=== PATIENT | female | born 1980 | race Caucasian/White ===

== ENCOUNTER 2020-07-19 14:00 | Inpatient (IN) | payer MEDICAID, OTHER, SELFPAY ==
--- NOTE | 2020-07-19 14:16 | ED_ITS ---
HPI - Psych General Chief Complaint: Psychiatric Symptoms Stated Complaint: CRISIS Time Seen by Provider: 07/19/20 14:16 Source: patient Mode of arrival: ambulatory Limitations: no limitations History of Present Illness HPI Narrative: 40 y/o female with history of bipolar depression, PTSD, hx self harm and SI in the past presenting from home with worsening depression and intrusive SI thoughts over the last 2 weeks. She states she does not feel safe at home any longer. She has been having increased stress with her partner at home and they aren't getting along. Her partner is transgender and taking testosterone and the masculine changes have triggered PTSD for her. She reports compliance with her psych meds at home. She is thinking about overdosing on them and knows that she needs to get help and that she is not safe. When covid pandemic started she was getting intensive 5 days a week therapy and support. She is still getting therapy 2x per week but feels this is not enough for her in her current state. Related Data Home Medications Medication Instructions Recorded Confirmed clonidine HCl 0.3 mg PO BEDTIME 07/19/20 07/19/20 dextroamphetamine-amphetamine 5 mg PO DAILY 07/19/20 07/19/20 [Adderall] finasteride 2.5 mg PO DAILY 07/19/20 07/19/20 lamotrigine 200 mg PO DAILY 07/19/20 07/19/20 lorazepam 1 mg PO DAILY 07/19/20 07/19/20 sertraline 25 mg PO DAILY 07/19/20 07/19/20 Allergies Allergy/AdvReac Type Severity Reaction Status Date / Time No Known Allergies Allergy Verified 07/19/20 14:59 Review of Systems Review of Systems: Constitutional: No Fever, No Chills ENT/Mouth: No sore throat, No Rhinorrhea, No Swallowing Difficulty Eyes: No Eye Pain, No Swelling, No Redness Cardiovascular: No Chest Pain, No SOB, No Orthopnea, No Edema Respiratory: + Cough (chronic), No Sputum, No Wheezing, No dyspnea Gastrointestinal: + Nausea (chronic), No Vomiting, No Diarrhea, No abdominal Pain, No Hematochezia, No Melena Genitourinary: No Dysuria, No Urinary Frequency, No Hematuria Musculoskeletal: No joint pain, No Myalgias Skin: No Skin Lesions, No rash Neuro: No Weakness, No Numbness, No Dizziness, No Headache Psych: + Anxiety/Panic, + Depression, +SI, No AH/VH Heme/Lymph: No Bruising, No Lymphadenopathy Endocrine: No Polyuria, No Polydipsia [facility] Past Medical History Attestation statement: The following information was validated with the patient. Medical History Arthritis PCOS (polycystic ovarian syndrome) Scoliosis Surgical History (Updated 07/19/20 @ 14:44 by Dione Aparicio) Hx of appendectomy Social History Social History Use of substances other than those prescribed or required for medical reasons: Yes Substance Use Type: Marijuana Advance Directives: No Advance Directives Information Provided: Yes Physical Exam Vital Signs: Vital Signs: Vital Signs Temp Pulse Resp BP Pulse Ox 07/19/20 14:50 97.4 F 106 H 22 H 133/80 95 07/19/20 14:36 97.4 F 106 H 22 H 133/80 95 Body Mass Index 31.3 Appearance: Alert. Oriented X3. Tearful Eyes: Pupils equal, round and reactive to light. ENT: Pharynx normal. Neck: Normal inspection. Neck supple. CVS: Normal heart rate and rhythm. Pulses normal. Respiratory: No respiratory distress. Breath sounds normal. Abdomen: Soft and nontender. +BS x4 Skin: Skin warm and dry. Normal skin color. Normal skin turgor. No rashes. Extremities: No lower extremity edema. Psych: tearful, normal cognition with good insight to her illness, +SI, Neuro: Oriented X 3. No motor deficit. No sensory deficit. Course Course Course Narrative: 40 yo female with history of bipolar depression, PTSD, and self harm presenting with SI with plan to overdose. Increased life stressors. Wants to get help. She does not feel safe at home. Will get routine labs and get [facility] consult. MDM - Psych Restraints Face to Face Assessment: Face to Face Assessment: Current Situation: After assessment of the patient, a review of the pertinent medical record and a discussion with nursing staff, I feel the patient requires a restrain in tervention. Reaction To: [] Medical Condition: [] Behavioral State: [] Continued Need: [] Lab Data Result diagrams: 07/19/20 15:31 Labs: Lab Results 07/19/20 07/19/20 07/19/20 Range/Units 14:35 14:35 15:31 WBC 11.9 H (4.8-10.8) X10*3/uL RBC 4.94 (4.20-5.50) X10*6/uL Hgb 15.4 (12.0-16.0) g/dl Hct 44.6 (37-47) % MCV 90.3 (80-98) fL MCH 31.2 (27.0-33.0) pg MCHC 34.5 (31.0-35.0) g/dl RDW 11.9 (11.0-16.0) % Plt Count 370 (160-400) X10*3/uL MPV 9.7 (9.4-12.3) fL Immature Gran % (Auto) 0.5 H (0.0-0.4) % Neut % (Auto) 76.9 H (45-73) % Lymph % (Auto) 15.6 L (20-40) % [place] % (Auto) 6.0 (2-11) % Eos % (Auto) 0.6 (0-4) % Baso % (Auto) 0.4 (0-2) % Lymph # (Auto) 1.9 (1.2-4.9) X10*3/uL [place] # (Auto) 0.7 (0.1-1.2) X10*3/uL Eos # (Auto) 0.1 (0.0-0.4) X10*3/uL Baso # (Auto) 0.1 (0.0-0.2) X10*3/uL Abs Immat Gran (auto) 0.06 H (0.00-0.03) X10*3/uL Absolute Neuts (auto) 9.2 H (2.0-8.3) X10*3/uL Absolute Nucleated RBC 0.000 (0.0-0.012) X10*3/uL Nucleated RBC % (auto) 0.0 (0.0-0.2) /100WBC Urine Test NEGATIVE (NEGATIVE) Salicylates (15-30) mg/dL Urine Opiates Screen Not Detected (Not Detect) Acetaminophen (<30) mcg/mL Ur Barbiturates Screen Not Detected (Not Detect) Ur Phencyclidine Scrn Not Detected (Not Detect) Ur Amphetamines Screen Not Detected (Not Detect) U Benzodiazepines Scrn Not Detected (Not Detect) Urine Cocaine Screen Not Detected (Not Detect) U Marijuana (THC) Screen POSITIVE H (Not Detect) Ethyl Alcohol mg/dL 07/19/20 07/19/20 Range/Units 15:31 15:31 WBC (4.8-10.8) X10*3/uL RBC (4.20-5.50) X10*6/uL Hgb (12.0-16.0) g/dl Hct (37-47) % MCV (80-98) fL MCH (27.0-33.0) pg MCHC (31.0-35.0) g/dl RDW (11.0-16.0) % Plt Count (160-400) X10*3/uL MPV (9.4-12.3) fL Immature Gran % (Auto) (0.0-0.4) % Neut % (Auto) (45-73) % Lymph % (Auto) (20-40) % [place] % (Auto) (2-11) % Eos % (Auto) (0-4) % Baso % (Auto) (0-2) % Lymph # (Auto) (1.2-4.9) X10*3/uL [place] # (Auto) (0.1-1.2) X10*3/uL Eos # (Auto) (0.0-0.4) X10*3/uL Baso # (Auto) (0.0-0.2) X10*3/uL Abs Immat Gran (auto) (0.00-0.03) X10*3/uL Absolute Neuts (auto) (2.0-8.3) X10*3/uL Absolute Nucleated RBC (0.0-0.012) X10*3/uL Nucleated RBC % (auto) (0.0-0.2) /100WBC Urine Test (NEGATIVE) Salicylates < 5.0 L (15-30) mg/dL Urine Opiates Screen (Not Detect) Acetaminophen < 1 (<30) mcg/mL Ur Barbiturates Screen (Not Detect) Ur Phencyclidine Scrn (Not Detect) Ur Amphetamines Screen (Not Detect) U Benzodiazepines Scrn (Not Detect) Urine Cocaine Screen (Not Detect) U Marijuana (THC) Screen (Not Detect) Ethyl Alcohol < 10 mg/dL Discharge Plan Discharge Prescriptions: No Action lamotrigine 200 mg Tablet 200 mg PO DAILY RF: 0 clonidine HCl 0.3 mg Tablet 0.3 mg PO BEDTIME RF: 0 sertraline 25 mg Tablet 25 mg PO DAILY RF: 0 lorazepam 1 mg Tablet 1 mg PO DAILY RF: 0 finasteride 5 mg Tablet 2.5 mg PO DAILY RF: 0 dextroamphetamine-amphetamine [Adderall] 5 mg Tablet 5 mg PO DAILY RF: 0
--- NOTE | 2020-07-19 14:17 | PC.NURSE ---
pt arrived to ed from waiting room. pt cooperative w/ changeover, alert.
[2020-07-19 14:36] VITALS: BP 133/80; PULSE 106; RESP 22; TEMP 36.3; O2SAT 95; BMI 31.3
[2020-07-19 14:49] LABS: UPreg QC Valid YES; Urine Pregnancy NEGATIVE (NEGATIVE)
[2020-07-19 14:50] VITALS: BP 133/80; PULSE 106; RESP 22; TEMP 36.3; O2SAT 95
[2020-07-19 15:14] LABS: Amphetamine Screen Urine Not Detected (Not Detect); Barbiturates, Urine Not Detected (Not Detect); Benzodiazepines Screen Urine Not Detected (Not Detect); Cannabinoid Screen Urine POSITIVE (Not Detect); Cocaine Screen Urine Not Detected (Not Detect); Opiate Screen Urine Not Detected (Not Detect); Phencyclidine Screen Urine Not Detected (Not Detect)
[2020-07-19 15:40] LABS: MANUAL DIFF FLAG NO
[2020-07-19 15:41] LABS: Basophils Absolute Auto 0.1 X10*3/uL (0.0-0.2); Basophils Percent Auto 0.4 % (0-2); Eosinophils Absolute Auto 0.1 X10*3/uL (0.0-0.4); Eosinophils Percent Auto 0.6 % (0-4); Hematocrit 44.6 % (37-47); Hemoglobin 15.4 g/dl (12.0-16.0); Imm Gran Abs Auto 0.06 X10*3/uL (0.00-0.03); Imm Gran Pct Auto 0.5 % (0.0-0.4); Lymphocytes Absolute Auto 1.9 X10*3/uL (1.2-4.9); Lymphocytes Percent Auto 15.6 % (20-40); Mean Corpuscular HGB Conc 34.5 g/dl (31.0-35.0); Mean Corpuscular Hemoglobin 31.2 pg (27.0-33.0); Mean Corpuscular Volume 90.3 fL (80-98); Mean Platelet Volume 9.7 fL (9.4-12.3); Monocytes Absolute Auto 0.7 X10*3/uL (0.1-1.2); Neutrophils Absolute Auto 9.2 X10*3/uL (2.0-8.3); Neutrophils Percent Auto 76.9 % (45-73); Platelet Count 370 X10*3/uL (160-400); Red Blood Count 4.94 X10*6/uL (4.20-5.50); Red Cell Distribution Width 11.9 % (11.0-16.0); White Blood Count 11.9 X10*3/uL (4.8-10.8)
[2020-07-19 16:10] LABS: Ethanol < 10 mg/dL
[2020-07-19 16:12] LABS: Acetaminophen LAB < 1 mcg/mL (<30); Salicylate < 5.0 mg/dL (15-30)
--- NOTE | 2020-07-19 16:22 | PC.NURSE ---
MAAMEN called and faxed.
--- NOTE | 2020-07-19 19:15 | PC.NURSE ---
Patient waiting to be seen by azra Barakat at this time, patient alert, oriented, and coherent. Currently on phone talking appropriately. Denied distress. Will continue to monitor.
--- NOTE | 2020-07-19 19:21 | PC.NURSE ---
[facility] called/spoke with Raymundo to check on clinician ETA, notified possible to no clinician availability at this time for tonight, if medication administration needed advised to administer and not to wait for clinician per [facility].
[2020-07-19] MEDS: LORazepam 1 MG TABLET PO (19:44)
[2020-07-19 19:47] VITALS: BP 140/96; PULSE 96; RESP 20; O2SAT 96
[2020-07-19 20:04] VITALS: BP 140/96; PULSE 95
[2020-07-19] MEDS: cloNIDine HCL 0.1 MG TABLET 0.3 MG PO (20:04)
[2020-07-19] MEDS: Nicotine Polacrilex 2 MG GUM BUCCAL (21:55)
[2020-07-19 23:37] VITALS: BP 121/72; PULSE 81; RESP 16; TEMP 35.8; O2SAT 97
[2020-07-20] MEDS: LORazepam 1 MG TABLET 2 MG PO (02:54)
[2020-07-20 06:30] VITALS: RESP 16
--- NOTE | 2020-07-20 06:57 | PC.NURSE ---
Report recieved. Pt currently sleeping, respirations even and unlabored, in no apparent distress. Pt is waiting to be seen by n.
[2020-07-20 09:13] VITALS: BP 121/85; PULSE 86; RESP 18; TEMP 36.8; O2SAT 97
[2020-07-20] MEDS: Sertraline HCL 25 MG TABLET PO (10:07)
[2020-07-20] MEDS: lamoTRIgine 100 MG TABLET 200 MG PO (10:07)
--- NOTE | 2020-07-20 10:25 | PC.NURSE ---
Care team with patient for eval.
[2020-07-20] MEDS: Nicotine 21 MG PATCH.TD24 TRANSDERMA (10:58)
[2020-07-20] MEDS: LORazepam 1 MG TABLET PO (10:59)
--- NOTE | 2020-07-20 12:42 | MHC.CARE ---
Patient assessed by the CARE team after waiting almost 20 hours for [facility] Crisis, they were notified at 0900, spoke to supervisor pre wave Balbir. Patient will require inpatient psychiatric treatment, she has been accepted to and will wait in the ED for this voluntary admission. CARE team will obtain insurance authorization.
--- NOTE | 2020-07-20 15:29 | PC.NURSE ---
Pt currently resting in bed. No complaints at this time. Awaiting transfer to .
[2020-07-20 15:54] LABS: SARS COV2 PCR INHOUSE NEGATIVE (Negative)
[2020-07-20 17:30] VITALS: BP 136/87; PULSE 113; RESP 20; TEMP 36.2; O2SAT 98
--- NOTE | 2020-07-20 17:38 | PC.NURSE ---
Pt currently quietly resting in bed, no complaints at this time. Awaiting transfer to .
--- NOTE | 2020-07-20 20:15 | PC.NURSE ---
Pt quietly resting in bed. No complaints at this time. Calm and cooperative. Awaiting transfer to .
[2020-07-20 21:48] VITALS: BP 149/110; PULSE 120
[2020-07-20] MEDS: cloNIDine HCL 0.1 MG TABLET 0.3 MG PO (21:48)
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
[2020-07-21] MEDS: traZODone HCL 50 MG TABLET PO ×2 (00:39→22:39)
[2020-07-21 06:00] VITALS: BP 97/56; PULSE 67; RESP 18; TEMP 36.3
[2020-07-21] MEDS: Sertraline HCL 25 MG TABLET PO (08:33)
[2020-07-21] MEDS: lamoTRIgine 100 MG TABLET 200 MG PO (08:33)
[2020-07-21] MEDS: Finasteride 5 MG TABLET 2.5 MG PO (08:34)
[2020-07-21] MEDS: Flu Vacc QS2020-21(6mos up)/PF 0.5 ML SYRINGE IM (08:37)
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
[2020-07-21] MEDS: Nicotine 21 MG PATCH.TD24 TRANSDERMA (09:49)
[2020-07-21] MEDS: Milk of Magnesia 30 ML ORAL.SUSP PO (11:46)
[2020-07-21] MEDS: Lidocaine 4 % Patch ADH..PATCH 1 PATCH TRANSDERMA (12:49)
[2020-07-21] MEDS: LORazepam 1 MG TABLET PO ×3 (12:49→20:18)
[2020-07-21 18:00] VITALS: BP 134/80; PULSE 92; TEMP 37.1
[2020-07-21 20:16] VITALS: BP 134/80; PULSE 92
[2020-07-21] MEDS: cloNIDine HCL 0.1 MG TABLET 0.3 MG PO (20:16)
[2020-07-21] MEDS: risperiDONE 0.5 MG TABLET PO (20:29)
[2020-07-22 06:10] VITALS: BP 108/62; PULSE 80; RESP 16; TEMP 36.5; O2SAT 99
[2020-07-22] MEDS: Sertraline HCL 25 MG TABLET PO ×2 (08:22→11:08)
[2020-07-22] MEDS: lamoTRIgine 100 MG TABLET 200 MG PO (08:22)
[2020-07-22] MEDS: LORazepam 1 MG TABLET PO ×3 (08:22→20:10)
[2020-07-22] MEDS: Nicotine 21 MG PATCH.TD24 TRANSDERMA (08:23)
[2020-07-22] MEDS: Finasteride 5 MG TABLET 2.5 MG PO (08:23)
[2020-07-22] MEDS: Lidocaine 4 % Patch ADH..PATCH 1 PATCH TRANSDERMA (08:23)
--- NOTE | 2020-07-22 09:17 | HO.PSYCHPN ---
Subjective Subjective Date of Service: 07/22/20 Reason For Visit: Depression Subjective Notes: Conditional Voluntary Interim History: Kamilah reports that she feels more settled taking ativan on a scheduled basis. She has been calmer and able to stay in the moment. She spoke about her worried about a PHP though she was hoping to find a way to participate. She has no SI and her mood is brighter. Medication Compliance: Yes Side effects from medications: No Attending Groups: Yes Review of Systems Acute medical concerns: No Medical Review of Systems: unchanged Mental Status Exam Mental Status Exam Patient Appearance: Well Grooomed Patient Orientation: Person, Place, Time and Situation Level of Consciousness: Awake Patient Behavior: Appropriate and Cooperative Mood Description: Calm, Depressed and Sad Affect Description: Calm, Depressed and Sad Ability to Follow Directions: Excellent Speech Pattern: Clear, Appropriate and Spontaneous Speech Memory Description: Intact Hallucinations: None Delusions: Not Present Thought Process: Rumination and Goal Oriented Thought Content: positive for Circumstantial, positive for Goal Oriented, positive for Linear, negative for Suicidal Ideation and negative for Homicidal Ideation Depressive Symptoms: Increased Anxiety, Insomnia, Diff. Making Decisions, Increased Irritability, Crying Spells, Feelings of Worthlessness, Hopelessness, Feelings of Guilt, Unhappiness, Thoughts of /Suicide, Low Self Esteem and Loss of Energy Judgement: Good Diagnostics Vital Signs (24Hr): Vital Signs - 24 hr 07/21/20 18:00 07/21/20 20:16 07/22/20 06:10 Temperature 98.8 F 97.7 F Pulse Rate 92 92 80 Respiratory Rate 16 Blood Pressure 134/80 134/80 108/62 Pulse Oximetry 99 Body Mass Index 30.0 Labs Results: 07/19/20 15:31 Labs: Laboratory Results - last 48 hr 07/20/20 14:35 Coronavirus (PCR) NEGATIVE Medications Medications Current Medications Generic Name Dose Route Start Last Admin Trade Name Freq PRN Reason Stop Dose Admin Acetaminophen 650 mg 07/20/20 22:25 Acetaminophen 325 Mg Tablet PO Q6H PRN Headache/Pain Mild Scale (1-3) Al Hydroxide/Mg Hydroxide 30 ml 07/20/20 22:25 Magnesium Hydrox/Alum Hydrox 30 Ml Oral.Susp PO Q6H PRN Heartburn/Nausea Amphetamine/Dextroamphetamine 5 mg 07/20/20 09:30 07/22/20 08:24 Amphetamine Mixed Salts 10 Mg Tablet PO Not Given DAILY KANDY Clonidine HCl 0.3 mg 07/19/20 21:00 07/21/20 20:16 Clonidine Hcl 0.1 Mg Tablet PO 0.3 mg BEDTIME KANDY Administration Protocol Finasteride 2.5 mg 07/20/20 09:00 07/22/20 08:23 Finasteride 5 Mg Tablet PO 2.5 mg DAILY KANDY Administration Hydroxyzine HCl 25 mg 07/20/20 22:25 Hydroxyzine Hcl 25 Mg Tablet PO BEDTIME PRN Anxiety Ibuprofen 600 mg 07/21/20 11:53 Ibuprofen 600 Mg Tablet PO Q6H PRN Pain, Moderate (Pain Scale 4-6 Lamotrigine 200 mg 07/20/20 09:15 07/22/20 08:22 Lamotrigine 100 Mg Tablet PO 200 mg DAILY KANDY Administration Lidocaine 1 patch 07/21/20 12:00 07/22/20 08:23 Lidocaine 4 % Patch Adh..Patch TRANSDERMA 1 patch DAILY KANDY Administration Protocol Lorazepam 1 mg 07/21/20 11:55 07/22/20 08:22 Lorazepam 1 Mg Tablet PO 1 mg TID KANDY Administration Magnesium Hydroxide 30 ml 07/20/20 22:25 07/21/20 11:46 Milk Of Magnesia 30 Ml Oral.Susp PO 30 ml DAILY PRN Administration Constipation Nicotine 21 mg 07/22/20 09:00 07/22/20 08:23 Nicotine 21 Mg Patch.Td24 TRANSDERMA 21 mg DAILY KANDY Administration Nicotine Polacrilex 2 mg 07/19/20 21:47 07/19/20 21:55 Nicotine Polacrilex 2 Mg Gum BUCCAL 2 mg Q2H PRN Administration Nicotine Cravings Risperidone 0.5 mg 07/21/20 11:50 07/21/20 20:29 Risperidone 0.5 Mg Tablet PO 0.5 mg Q4H PRN Administration Anxiety Sertraline HCl 25 mg 07/20/20 09:00 07/22/20 08:22 Sertraline Hcl 25 Mg Tablet PO 25 mg DAILY KANDY Administration Trazodone HCl 50 mg 07/20/20 22:25 07/21/20 22:39 Trazodone Hcl 50 Mg Tablet PO 50 mg BEDTIME PRN Administration Insomnia Allergies Allergies Allergy/AdvReac Type Severity Reaction Status Date / Time No Known Allergies Allergy Verified 07/19/20 14:59 Assessment & Plan Assessment & Plan (1) PTSD (post-traumatic stress disorder): Status: Acute Code(s): F43.10 - Post-traumatic stress disorder, unspecified (2) Bipolar 2 disorder, major depressive episode: Status: Acute Code(s): F31.81 - Bipolar II disorder Assessment and Plan: CT current treatment plan. Consider PHP when ready for DC Greater than 50% of the session was spent on counseling and/or coordination of care Patient educated on: diagnosis and medication risk/benefits Informed Consent: further education needed Reason for contiued inpatient stay Substantial Risk for: inability to function and rapid decompensation
[2020-07-22 18:00] VITALS: BP 131/81; PULSE 107; TEMP 36.9
[2020-07-22 20:10] VITALS: BP 141/84; PULSE 103
[2020-07-22] MEDS: cloNIDine HCL 0.1 MG TABLET 0.3 MG PO (20:10)
[2020-07-22] MEDS: Milk of Magnesia 30 ML ORAL.SUSP PO (20:10)
[2020-07-22] MEDS: traZODone HCL 50 MG TABLET PO ×2 (22:22→23:56)
[2020-07-23] MEDS: Sertraline HCL 25 MG TABLET 50 MG PO (09:51)
[2020-07-23] MEDS: LORazepam 1 MG TABLET PO ×3 (09:52→22:10)
[2020-07-23] MEDS: lamoTRIgine 100 MG TABLET 200 MG PO (09:52)
[2020-07-23] MEDS: Nicotine 21 MG PATCH.TD24 TRANSDERMA (09:53)
[2020-07-23] MEDS: Lidocaine 4 % Patch ADH..PATCH 1 PATCH TRANSDERMA (09:53)
[2020-07-23] MEDS: Finasteride 5 MG TABLET 2.5 MG PO (09:57)
[2020-07-23 10:07] VITALS: BP 125/72; PULSE 88; TEMP 36.2; O2SAT 97
[2020-07-23] MEDS: risperiDONE 0.5 MG TABLET PO (16:36)
[2020-07-23 18:00] VITALS: BP 118/56; PULSE 76; TEMP 36.5
--- NOTE | 2020-07-23 21:28 | P.PNPSI_ITS ---
Subjective Subjective Reason For Visit: Depression Subjective Notes: Conditional Voluntary Interim History: Kamilah reports that she feels more settled taking ativan on a scheduled basis. She has been calmer and feelsmore hopeful She slept well after taking second dose of trazodone and asked to have the whole dose at bedtime so she could go to sleep an hour earlier- no adverse effects f rom trazodone She has no SI and her mood is brighter. Medication Compliance: Yes Side effects from medications: No Attending Groups: Yes Review of Systems Acute medical concerns: No Medical Review of Systems: unchanged Review of Systems Review of Systems Constitutional: No Fever, No Chills ENT/Mouth: No sore throat, No Rhinorrhea, No Swallowing Difficulty Eyes: No Eye Pain, No Swelling, No Redness Cardiovascular: No Chest Pain, No SOB, No Orthopnea, No Edema Respiratory: + Cough (chronic), No Sputum, No Wheezing, No dyspnea Gastrointestinal: + Nausea (chronic), No Vomiting, No Diarrhea, No abdominal Pain, No Hematochezia, No Melena Genitourinary: No Dysuria, No Urinary Frequency, No Hematuria Musculoskeletal: No joint pain, No Myalgias Skin: No Skin Lesions, No rash Neuro: No Weakness, No Numbness, No Dizziness, No Headache Psych: + Anxiety/Panic, + Depression, +SI, No AH/VH Heme/Lymph: No Bruising, No Lymphadenopathy Endocrine: No Polyuria, No Polydipsia Mental Status Exam Mental Status Exam Patient Appearance: Well Grooomed Patient Orientation: Person, Place, Time and Situation Level of Consciousness: Awake Patient Behavior: Appropriate and Cooperative Mood Description: Calm, Depressed, Anxious and Sad Affect Description: Calm, Depressed and Sad Ability to Follow Directions: Excellent Speech Pattern: Clear, Appropriate and Spontaneous Speech Memory Description: Intact Hallucinations: None Delusions: Not Present Thought Process: Rumination and Goal Oriented Thought Content: positive for Circumstantial, positive for Goal Oriented, positive for Linear, negative for Suicidal Ideation and negative for Homicidal Ideation Depressive Symptoms: Increased Anxiety, Insomnia, Diff. Making Decisions, Increased Irritability, Crying Spells, Feelings of Worthlessness, Hopelessness, Feelings of Guilt, Unhappiness, Thoughts of /Suicide, Low Self Esteem and Loss of Energy Judgement: Good Diagnostics Vital Signs (24Hr): Vital Signs - 24 hr 07/23/20 10:07 Temperature 97.2 F Pulse Rate 88 Blood Pressure 125/72 Pulse Oximetry 97 Body Mass Index 30.0 Labs Results: 07/19/20 15:31 Medications Medications Current Medications Generic Name Dose Route Start Last Admin Trade Name Freq PRN Reason Stop Dose Admin Acetaminophen 650 mg 07/20/20 22:25 Acetaminophen 325 Mg Tablet PO Q6H PRN Headache/Pain Mild Scale (1-3) Al Hydroxide/Mg Hydroxide 30 ml 07/20/20 22:25 Magnesium Hydrox/Alum Hydrox 30 Ml Oral.Susp PO Q6H PRN Heartburn/Nausea Amphetamine/Dextroamphetamine 5 mg 07/20/20 09:30 07/23/20 09:55 Amphetamine Mixed Salts 10 Mg Tablet PO Not Given DAILY KANDY Clonidine HCl 0.3 mg 07/19/20 21:00 07/22/20 20:10 Clonidine Hcl 0.1 Mg Tablet PO 0.3 mg BEDTIME KANDY Administration Protocol Finasteride 2.5 mg 07/20/20 09:00 07/23/20 09:57 Finasteride 5 Mg Tablet PO 2.5 mg DAILY KANDY Administration Ibuprofen 600 mg 07/21/20 11:53 Ibuprofen 600 Mg Tablet PO Q6H PRN Pain, Moderate (Pain Scale 4-6 Lamotrigine 200 mg 07/20/20 09:15 07/23/20 09:52 Lamotrigine 100 Mg Tablet PO 200 mg DAILY KANDY Administration Lidocaine 1 patch 07/21/20 12:00 07/23/20 09:53 Lidocaine 4 % Patch Adh..Patch TRANSDERMA 1 patch DAILY KANDY Administration Protocol Lorazepam 1 mg 07/21/20 11:55 07/23/20 14:41 Lorazepam 1 Mg Tablet PO 1 mg TID KANDY Administration Magnesium Hydroxide 30 ml 07/20/20 22:25 07/22/20 20:10 Milk Of Magnesia 30 Ml Oral.Susp PO 30 ml DAILY PRN Administration Constipation Nicotine 21 mg 07/22/20 09:00 07/23/20 09:53 Nicotine 21 Mg Patch.Td24 TRANSDERMA 21 mg DAILY KANDY Administration Nicotine Polacrilex 2 mg 07/19/20 21:47 07/19/20 21:55 Nicotine Polacrilex 2 Mg Gum BUCCAL 2 mg Q2H PRN Administration Nicotine Cravings Risperidone 0.5 mg 07/21/20 11:50 07/23/20 16:36 Risperidone 0.5 Mg Tablet PO 0.5 mg Q4H PRN Administration Anxiety Sertraline HCl 50 mg 07/23/20 09:00 07/23/20 09:51 Sertraline Hcl 25 Mg Tablet PO 50 mg DAILY KANDY Administration Trazodone HCl 100 mg 07/23/20 11:36 Trazodone Hcl 50 Mg Tablet PO BEDTIME PRN Insomnia Allergies Allergies Allergy/AdvReac Type Severity Reaction Status Date / Time No Known Allergies Allergy Verified 07/19/20 14:59 Assessment & Plan Assessment & Plan (1) PTSD (post-traumatic stress disorder): Status: Acute Code(s): F43.10 - Post-traumatic stress disorder, unspecified (2) Bipolar 2 disorder, major depressive episode: Status: Acute Code(s): F31.81 - Bipolar II disorder (3) Depression: Qualifiers: Active/Remission status: currently active Depression Type: major depressive disorder Major depression episode severity: severe Major depression recurrence: recurrent Psychotic features: with psychotic features Qualified Code(s): F33.3 - Major depressive disorder, recurrent, severe with psychotic symptoms Status: Acute Code(s): F32.9 - Major depressive disorder, single episode, unspecified Assessment and Plan: change trazodone to 100mg at HS encourage fluids advised re: sedation and dizzines- use care at night after sleep meds Greater than 50% of the session was spent on counseling and/or coordination of care Patient educated on: diagnosis and medication risk/benefits Informed Consent: does not understand Reason for contiued inpatient stay Substantial Risk for: inability to function and med/psych decompensation Greater than 50% of the session was spent on counseling and/or coordination of care
[2020-07-23 22:08] VITALS: BP 158/88; PULSE 114
[2020-07-23] MEDS: cloNIDine HCL 0.1 MG TABLET 0.3 MG PO (22:08)
[2020-07-23] MEDS: traZODone HCL 50 MG TABLET 100 MG PO (23:09)
[2020-07-24] MEDS: lamoTRIgine 100 MG TABLET 200 MG PO (08:53)
[2020-07-24] MEDS: LORazepam 1 MG TABLET PO ×3 (08:57→21:00)
[2020-07-24] MEDS: Sertraline HCL 25 MG TABLET 50 MG PO (08:58)
[2020-07-24] MEDS: Amphetamine Mixed Salts 10 MG TABLET 5 MG PO (08:59)
[2020-07-24 09:00] VITALS: BP 129/86; PULSE 96; TEMP 36.9; O2SAT 98
[2020-07-24] MEDS: Finasteride 5 MG TABLET 2.5 MG PO (09:00)
[2020-07-24] MEDS: Nicotine 21 MG PATCH.TD24 TRANSDERMA (09:02)
--- NOTE | 2020-07-24 10:50 | HO.PSYCHPN ---
Subjective Subjective Reason For Visit: Depression Subjective Notes: Conditional Voluntary Interim History: Kamilah reports that she slept better taking trazodone 100mg at HS - slept through the night she has been feeling less anxious taking ativan on a scheduled basis. She has been calmer and feels more hopeful She has no SI and her mood is brighter. Medication Compliance: Yes Side effects from medications: No Attending Groups: Yes Review of Systems Acute medical concerns: No Medical Review of Systems: unchanged Review of Systems Review of Systems Constitutional: No Fever, No Chills ENT/Mouth: No sore throat, No Rhinorrhea, No Swallowing Difficulty Eyes: No Eye Pain, No Swelling, No Redness Cardiovascular: No Chest Pain, No SOB, No Orthopnea, No Edema Respiratory: + Cough (chronic), No Sputum, No Wheezing, No dyspnea Gastrointestinal: + Nausea (chronic), No Vomiting, No Diarrhea, No abdominal Pain, No Hematochezia, No Melena Genitourinary: No Dysuria, No Urinary Frequency, No Hematuria Musculoskeletal: No joint pain, No Myalgias Skin: No Skin Lesions, No rash Neuro: No Weakness, No Numbness, No Dizziness, No Headache Psych: + Anxiety/Panic, + Depression, +SI, No AH/VH Heme/Lymph: No Bruising, No Lymphadenopathy Endocrine: No Polyuria, No Polydipsia Mental Status Exam Mental Status Exam Patient Appearance: Well Grooomed Patient Orientation: Person, Place, Time and Situation Level of Consciousness: Awake Patient Behavior: Appropriate and Cooperative Mood Description: Calm, Depressed, Anxious and Sad Affect Description: Calm, Depressed and Sad Ability to Follow Directions: Excellent Speech Pattern: Clear, Appropriate and Spontaneous Speech Memory Description: Intact Hallucinations: None Delusions: Not Present Thought Process: Rumination and Goal Oriented Thought Content: positive for Circumstantial, positive for Goal Oriented, positive for Linear, negative for Suicidal Ideation and negative for Homicidal Ideation Depressive Symptoms: Increased Anxiety, Insomnia, Diff. Making Decisions, Increased Irritability, Crying Spells, Feelings of Worthlessness, Hopelessness, Feelings of Guilt, Unhappiness, Thoughts of /Suicide, Low Self Esteem and Loss of Energy Judgement: Good Diagnostics Vital Signs (24Hr): Vital Signs - 24 hr 07/23/20 18:00 07/23/20 22:08 Temperature 97.7 F Pulse Rate 76 114 H Blood Pressure 118/56 L 158/88 H Body Mass Index 30.0 Labs Results: 07/19/20 15:31 Medications Medications Current Medications Generic Name Dose Route Start Last Admin Trade Name Freq PRN Reason Stop Dose Admin Acetaminophen 650 mg 07/20/20 22:25 Acetaminophen 325 Mg Tablet PO Q6H PRN Headache/Pain Mild Scale (1-3) Al Hydroxide/Mg Hydroxide 30 ml 07/20/20 22:25 Magnesium Hydrox/Alum Hydrox 30 Ml Oral.Susp PO Q6H PRN Heartburn/Nausea Amphetamine/Dextroamphetamine 5 mg 07/20/20 09:30 07/24/20 08:59 Amphetamine Mixed Salts 10 Mg Tablet PO 5 mg DAILY KANDY Administration Clonidine HCl 0.3 mg 07/19/20 21:00 07/23/20 22:08 Clonidine Hcl 0.1 Mg Tablet PO 0.3 mg BEDTIME KNADY Administration Protocol Finasteride 2.5 mg 07/20/20 09:00 07/24/20 09:00 Finasteride 5 Mg Tablet PO 2.5 mg DAILY KANDY Administration Ibuprofen 600 mg 07/21/20 11:53 Ibuprofen 600 Mg Tablet PO Q6H PRN Pain, Moderate (Pain Scale 4-6 Lamotrigine 200 mg 07/20/20 09:15 07/24/20 08:53 Lamotrigine 100 Mg Tablet PO 200 mg DAILY KANDY Administration Lidocaine 1 patch 07/21/20 12:00 07/24/20 09:03 Lidocaine 4 % Patch Adh..Patch TRANSDERMA Not Given DAILY KANDY Protocol Lorazepam 1 mg 07/21/20 11:55 07/24/20 08:57 Lorazepam 1 Mg Tablet PO 1 mg TID KANDY Administration Magnesium Hydroxide 30 ml 07/20/20 22:25 07/22/20 20:10 Milk Of Magnesia 30 Ml Oral.Susp PO 30 ml DAILY PRN Administration Constipation Nicotine 21 mg 07/22/20 09:00 07/24/20 09:02 Nicotine 21 Mg Patch.Td24 TRANSDERMA 21 mg DAILY KANDY Administration Nicotine Polacrilex 2 mg 07/19/20 21:47 07/19/20 21:55 Nicotine Polacrilex 2 Mg Gum BUCCAL 2 mg Q2H PRN Administration Nicotine Cravings Risperidone 0.5 mg 07/21/20 11:50 07/23/20 16:36 Risperidone 0.5 Mg Tablet PO 0.5 mg Q4H PRN Administration Anxiety Sertraline HCl 50 mg 07/23/20 09:00 07/24/20 08:58 Sertraline Hcl 25 Mg Tablet PO 50 mg DAILY KANDY Administration Trazodone HCl 100 mg 07/23/20 11:36 07/23/20 23:09 Trazodone Hcl 50 Mg Tablet PO 100 mg BEDTIME PRN Administration Insomnia Allergies Allergies Allergy/AdvReac Type Severity Reaction Status Date / Time No Known Allergies Allergy Verified 07/19/20 14:59 Assessment & Plan Assessment & Plan (1) PTSD (post-traumatic stress disorder): Status: Acute Code(s): F43.10 - Post-traumatic stress disorder, unspecified (2) Bipolar 2 disorder, major depressive episode: Status: Acute Code(s): F31.81 - Bipolar II disorder (3) Depression: Qualifiers: Active/Remission status: currently active Depression Type: major depressive disorder Major depression episode severity: severe Major depression recurrence: recurrent Psychotic features: with psychotic features Qualified Code(s): F33.3 - Major depressive disorder, recurrent, severe with psychotic symptoms Status: Acute Code(s): F32.9 - Major depressive disorder, single episode, unspecified Assessment and Plan: continue current treatment plan lidocaine patch discontinued at pt request due to the patch not staying in place Greater than 50% of the session was spent on counseling and/or coordination of care Patient educated on: diagnosis and medication risk/benefits Informed Consent: does not understand Reason for contiued inpatient stay Substantial Risk for: inability to function and med/psych decompensation Greater than 50% of the session was spent on counseling and/or coordination of care
[2020-07-24] MEDS: risperiDONE 0.5 MG TABLET PO ×2 (11:24→16:03)
[2020-07-24 18:00] VITALS: BP 146/81; PULSE 120; TEMP 36.9
[2020-07-24 21:03] VITALS: BP 141/92; PULSE 125
[2020-07-24] MEDS: cloNIDine HCL 0.1 MG TABLET 0.3 MG PO (21:03)
[2020-07-24] MEDS: traZODone HCL 50 MG TABLET 100 MG PO (23:02)
[2020-07-25 06:15] VITALS: BP 116/68; PULSE 89; RESP 18; TEMP 36.3
[2020-07-25] MEDS: risperiDONE 0.5 MG TABLET PO ×3 (06:49→18:11)
[2020-07-25] MEDS: LORazepam 1 MG TABLET PO ×3 (08:38→21:11)
[2020-07-25] MEDS: Amphetamine Mixed Salts 10 MG TABLET 5 MG PO (08:39)
[2020-07-25] MEDS: Finasteride 5 MG TABLET 2.5 MG PO (08:40)
[2020-07-25] MEDS: Sertraline HCL 25 MG TABLET 50 MG PO (08:41)
[2020-07-25] MEDS: lamoTRIgine 100 MG TABLET 200 MG PO (08:42)
[2020-07-25] MEDS: Nicotine 21 MG PATCH.TD24 TRANSDERMA (08:43)
--- NOTE | 2020-07-25 09:33 | HO.PSYCHPN ---
Subjective Subjective Date of Service: 07/25/20 Reason For Visit: Depression Subjective Notes: Conditional Voluntary Interim History: Kamilah reports that she slept better taking trazodone 100mg at HS - slept through the night she has been feeling anxious despite taking ativan on a scheduled basis. She was worried that she is being DC today, but was reassured that this is not the plan. She continues to consider ways that she could have support when she leaves. She does not feel that she can use zoom. She spoke about the ways in which she feels unsupported by her ex-partner with whom she lives. She is wondering if ECT would help with her depression. Medication Compliance: Yes Side effects from medications: No Attending Groups: Yes Review of Systems Acute medical concerns: No Medical Review of Systems: unchanged Mental Status Exam Mental Status Exam Patient Appearance: Well Grooomed Patient Orientation: Person, Place, Time and Situation Level of Consciousness: Awake Patient Behavior: Appropriate and Cooperative Mood Description: Calm, Depressed, Anxious and Sad Affect Description: Calm, Depressed and Sad Ability to Follow Directions: Excellent Speech Pattern: Clear, Appropriate and Spontaneous Speech Memory Description: Intact Hallucinations: None Delusions: Not Present Thought Process: Rumination and Goal Oriented Thought Content: positive for Circumstantial, positive for Goal Oriented, positive for Linear, negative for Suicidal Ideation and negative for Homicidal Ideation Depressive Symptoms: Increased Anxiety, Insomnia, Diff. Making Decisions, Increased Irritability, Crying Spells, Feelings of Worthlessness, Hopelessness, Feelings of Guilt, Unhappiness, Thoughts of /Suicide, Low Self Esteem and Loss of Energy Judgement: Good Diagnostics Vital Signs (24Hr): Vital Signs - 24 hr 07/24/20 18:00 07/24/20 21:03 07/25/20 06:15 Temperature 98.4 F 97.3 F Pulse Rate 120 H 125 H 89 Respiratory Rate 18 Blood Pressure 146/81 H 141/92 H 116/68 Body Mass Index 30.0 Labs Results: 07/19/20 15:31 Medications Medications Current Medications Generic Name Dose Route Start Last Admin Trade Name Freq PRN Reason Stop Dose Admin Acetaminophen 650 mg 07/20/20 22:25 Acetaminophen 325 Mg Tablet PO Q6H PRN Headache/Pain Mild Scale (1-3) Al Hydroxide/Mg Hydroxide 30 ml 07/20/20 22:25 Magnesium Hydrox/Alum Hydrox 30 Ml Oral.Susp PO Q6H PRN Heartburn/Nausea Amphetamine/Dextroamphetamine 5 mg 07/20/20 09:30 07/25/20 08:39 Amphetamine Mixed Salts 10 Mg Tablet PO 5 mg DAILY KANDY Administration Clonidine HCl 0.3 mg 07/19/20 21:00 07/24/20 21:03 Clonidine Hcl 0.1 Mg Tablet PO 0.3 mg BEDTIME KANDY Administration Protocol Finasteride 2.5 mg 07/20/20 09:00 07/25/20 08:40 Finasteride 5 Mg Tablet PO 2.5 mg DAILY KANDY Administration Ibuprofen 600 mg 07/21/20 11:53 Ibuprofen 600 Mg Tablet PO Q6H PRN Pain, Moderate (Pain Scale 4-6 Lamotrigine 200 mg 07/20/20 09:15 07/25/20 08:42 Lamotrigine 100 Mg Tablet PO 200 mg DAILY KANDY Administration Lorazepam 1 mg 07/21/20 11:55 07/25/20 08:38 Lorazepam 1 Mg Tablet PO 1 mg TID KANDY Administration Magnesium Hydroxide 30 ml 07/20/20 22:25 07/22/20 20:10 Milk Of Magnesia 30 Ml Oral.Susp PO 30 ml DAILY PRN Administration Constipation Nicotine 21 mg 07/22/20 09:00 07/25/20 08:43 Nicotine 21 Mg Patch.Td24 TRANSDERMA 21 mg DAILY KANDY Administration Nicotine Polacrilex 2 mg 07/19/20 21:47 07/19/20 21:55 Nicotine Polacrilex 2 Mg Gum BUCCAL 2 mg Q2H PRN Administration Nicotine Cravings Risperidone 0.5 mg 07/21/20 11:50 07/25/20 06:49 Risperidone 0.5 Mg Tablet PO 0.5 mg Q4H PRN Administration Anxiety Sertraline HCl 50 mg 07/23/20 09:00 07/25/20 08:41 Sertraline Hcl 25 Mg Tablet PO 50 mg DAILY KANDY Administration Trazodone HCl 100 mg 07/23/20 11:36 07/24/20 23:02 Trazodone Hcl 50 Mg Tablet PO 100 mg BEDTIME PRN Administration Insomnia Allergies Allergies Allergy/AdvReac Type Severity Reaction Status Date / Time No Known Allergies Allergy Verified 07/19/20 14:59 Assessment & Plan Assessment & Plan (1) PTSD (post-traumatic stress disorder): Status: Acute Code(s): F43.10 - Post-traumatic stress disorder, unspecified (2) Bipolar 2 disorder, major depressive episode: Status: Acute Code(s): F31.81 - Bipolar II disorder Assessment and Plan: Increase sertraline Increase standing risperdal CT groups and support Greater than 50% of the session was spent on counseling and/or coordination of care Patient educated on: diagnosis, medication risk/benefits and ECT Informed Consent: further education needed Reason for contiued inpatient stay Substantial Risk for: harm to self, inability to function and rapid decompensation
[2020-07-25 16:30] VITALS: BP 158/84; PULSE 97; TEMP 36.7
[2020-07-25 21:11] VITALS: BP 142/90; PULSE 101
[2020-07-25] MEDS: cloNIDine HCL 0.1 MG TABLET 0.3 MG PO (21:11)
[2020-07-25] MEDS: traZODone HCL 50 MG TABLET 100 MG PO (23:14)
--- NOTE | 2020-07-26 05:14 | HO.PSYCHPN ---
Subjective Subjective Reason For Visit: Depression Interim History: Kamilah reports that she is still feeling quite tearful and agitated. She is very raw, and reactive. She continues to be plagued with thoughts of dying. She feels unsafe and she is having bad dreams. She is wondering if ECT would help with her depression. We discussed the option of TMS as more appropriate given it is less intrusive I explored symptom course which is suggestive of MDD> Bipolar. Has comorbid anxiety driven by trauma. Will ANJEL MARTIN Review of Systems Review of Systems Yes all other systems are reviewed and are negative Mental Status Exam Mental Status Exam Patient Appearance: Well Grooomed Patient Orientation: Person, Place, Time and Situation Level of Consciousness: Awake Patient Behavior: Appropriate and Cooperative Mood Description: Calm, Depressed, Anxious and Sad Affect Description: Calm, Depressed and Sad Ability to Follow Directions: Excellent Speech Pattern: Clear, Appropriate and Spontaneous Speech Memory Description: Intact Diagnostics Vital Signs (24Hr): Vital Signs - 24 hr 07/25/20 06:15 07/25/20 16:30 07/25/20 21:11 Temperature 97.3 F 98.0 F Pulse Rate 89 97 101 H Respiratory Rate 18 Blood Pressure 116/68 158/84 H 142/90 H Body Mass Index 30.0 Labs Results: 07/19/20 15:31 Medications Medications Current Medications Generic Name Dose Route Start Last Admin Trade Name Dung PRN Reason Stop Dose Admin Acetaminophen 650 mg 07/20/20 22:25 Acetaminophen 325 Mg Tablet PO Q6H PRN Headache/Pain Mild Scale (1-3) Al Hydroxide/Mg Hydroxide 30 ml 07/20/20 22:25 Magnesium Hydrox/Alum Hydrox 30 Ml Oral.Susp PO Q6H PRN Heartburn/Nausea Amphetamine/Dextroamphetamine 5 mg 07/20/20 09:30 07/25/20 08:39 Amphetamine Mixed Salts 10 Mg Tablet PO 5 mg DAILY KANDY Administration Clonidine HCl 0.3 mg 07/19/20 21:00 07/25/20 21:11 Clonidine Hcl 0.1 Mg Tablet PO 0.3 mg BEDTIME KANDY Administration Protocol Finasteride 2.5 mg 07/20/20 09:00 07/25/20 08:40 Finasteride 5 Mg Tablet PO 2.5 mg DAILY KANDY Administration Ibuprofen 600 mg 07/21/20 11:53 Ibuprofen 600 Mg Tablet PO Q6H PRN Pain, Moderate (Pain Scale 4-6 Lamotrigine 200 mg 07/20/20 09:15 07/25/20 08:42 Lamotrigine 100 Mg Tablet PO 200 mg DAILY KANDY Administration Lorazepam 1 mg 07/21/20 11:55 07/25/20 21:11 Lorazepam 1 Mg Tablet PO 1 mg TID KANDY Administration Magnesium Hydroxide 30 ml 07/20/20 22:25 07/22/20 20:10 Milk Of Magnesia 30 Ml Oral.Susp PO 30 ml DAILY PRN Administration Constipation Nicotine 21 mg 07/22/20 09:00 07/25/20 08:43 Nicotine 21 Mg Patch.Td24 TRANSDERMA 21 mg DAILY KANDY Administration Nicotine Polacrilex 2 mg 07/19/20 21:47 07/19/20 21:55 Nicotine Polacrilex 2 Mg Gum BUCCAL 2 mg Q2H PRN Administration Nicotine Cravings Risperidone 1 mg 07/25/20 18:58 Risperidone 0.5 Mg Tablet PO Q4H PRN Anxiety Sertraline HCl 100 mg 07/26/20 09:00 Sertraline Hcl 25 Mg Tablet PO DAILY KANDY Trazodone HCl 100 mg 07/23/20 11:36 07/25/20 23:14 Trazodone Hcl 50 Mg Tablet PO 100 mg BEDTIME PRN Administration Insomnia Allergies Allergies Allergy/AdvReac Type Severity Reaction Status Date / Time No Known Allergies Allergy Verified 07/19/20 14:59 Assessment & Plan Assessment & Plan (1) PTSD (post-traumatic stress disorder): Status: Acute Code(s): F43.10 - Post-traumatic stress disorder, unspecified (2) Bipolar 2 disorder, major depressive episode: Status: Acute Code(s): F31.81 - Bipolar II disorder Assessment and Plan: Continue current medications Doubt bipolarity. Explore diagnoses. TMS>>ECT Greater than 50% of the session was spent on counseling and/or coordination of care
[2020-07-26 06:00] VITALS: BP 139/84; PULSE 107; RESP 16; TEMP 36.6; O2SAT 97
[2020-07-26] MEDS: risperiDONE 0.5 MG TABLET 1 MG PO ×2 (06:10→17:13)
[2020-07-26] MEDS: Sertraline HCL 25 MG TABLET 100 MG PO (09:23)
[2020-07-26] MEDS: LORazepam 1 MG TABLET PO ×3 (09:25→20:56)
[2020-07-26] MEDS: lamoTRIgine 100 MG TABLET 200 MG PO (09:25)
[2020-07-26] MEDS: Amphetamine Mixed Salts 10 MG TABLET 5 MG PO (09:26)
[2020-07-26] MEDS: Nicotine 21 MG PATCH.TD24 TRANSDERMA (09:28)
[2020-07-26] MEDS: Finasteride 5 MG TABLET 2.5 MG PO (09:31)
[2020-07-26 18:00] VITALS: BP 162/95; PULSE 115; TEMP 36.2
[2020-07-26 20:56] VITALS: BP 158/98; PULSE 110
[2020-07-26] MEDS: cloNIDine HCL 0.1 MG TABLET 0.3 MG PO (20:56)
[2020-07-26] MEDS: traZODone HCL 50 MG TABLET 100 MG PO (22:41)
[2020-07-27] VITALS (7 sets, daily range): BP systolic 126–150; BP diastolic 69–89; PULSE 92–128; TEMP 36.1–36.4; O2SAT 95–98
--- NOTE | 2020-07-27 | ECG_ITS ---
Test Reason : TACHYCARDIA Blood Pressure : / mmHG Vent. Rate : 137 BPM Atrial Rate : 137 BPM P-R Int : 130 ms QRS Dur : 082 ms QT Int : 298 ms P-R-T Axes : 028 -04 014 degrees QTc Int : 449 ms Sinus tachycardia Nonspecific T wave abnormality Abnormal ECG No previous ECGs available Referred By: Josue Corona Electronically Signed By:ROBYN PICKENS MD
[2020-07-27] MEDS: lamoTRIgine 100 MG TABLET 200 MG PO (08:15)
[2020-07-27] MEDS: LORazepam 1 MG TABLET PO ×3 (08:16→20:02)
[2020-07-27] MEDS: Sertraline HCL 25 MG TABLET 100 MG PO (08:16)
[2020-07-27] MEDS: Amphetamine Mixed Salts 10 MG TABLET 5 MG PO (08:18)
[2020-07-27] MEDS: Nicotine 21 MG PATCH.TD24 TRANSDERMA (08:21)
[2020-07-27] MEDS: Finasteride 5 MG TABLET 2.5 MG PO (08:21)
[2020-07-27] MEDS: risperiDONE 0.5 MG TABLET 1 MG PO ×2 (09:25→13:54)
--- NOTE | 2020-07-27 21:47 | P.PNPSI_ITS ---
Subjective Subjective Date of Service: 07/27/20 Reason For Visit: Depression Subjective Notes: Conditional Voluntary Interim History: Kamilah reports that she is still feeling quite tearful and agitated. She is very raw, and reactive. She continues to be plagued with thoughts of dying. She feels unsafe and she is having bad dreams. She is wondering if ECT would help with her depression. We discussed the option of TMS. It is unclear that the diagnosis of bipolar 2 is accurate since much of the reactivity and irritability is likely due to trauma. Will discuss this with Dr. Parker. Medication Compliance: Yes Side effects from medications: No Attending Groups: Yes Review of Systems Acute medical concerns: No Medical Review of Systems: unchanged Mental Status Exam Mental Status Exam Patient Appearance: Well Grooomed Patient Orientation: Person, Place, Time and Situation Level of Consciousness: Awake Patient Behavior: Appropriate and Cooperative Mood Description: Calm, Depressed, Anxious and Sad Affect Description: Calm, Depressed and Sad Ability to Follow Directions: Excellent Speech Pattern: Clear, Appropriate and Spontaneous Speech Memory Description: Intact Hallucinations: None Delusions: Not Present Thought Process: Rumination and Goal Oriented Thought Content: positive for Circumstantial, positive for Goal Oriented, positive for Linear, negative for Suicidal Ideation and negative for Homicidal Ideation Depressive Symptoms: Increased Anxiety, Insomnia, Diff. Making Decisions, Increased Irritability, Crying Spells, Feelings of Worthlessness, Hopelessness, Feelings of Guilt, Unhappiness, Thoughts of /Suicide, Low Self Esteem and Loss of Energy Judgement: Good Diagnostics Vital Signs (24Hr): Vital Signs - 24 hr 07/27/20 07:27 07/27/20 09:31 07/27/20 10:42 Temperature 96.9 F Pulse Rate 92 108 H 128 H Blood Pressure 126/69 141/85 H Pulse Oximetry 98 07/27/20 13:50 07/27/20 17:24 07/27/20 17:25 Temperature 97.5 F Pulse Rate 124 H 98 Blood Pressure 127/71 150/86 H Pulse Oximetry 95 07/27/20 20:13 Temperature Pulse Rate 110 H Blood Pressure 138/89 Pulse Oximetry 98 Body Mass Index 30.0 Labs Results: 07/19/20 15:31 Medications Medications Current Medications Generic Name Dose Route Start Last Admin Trade Name Freq PRN Reason Stop Dose Admin Acetaminophen 650 mg 07/20/20 22:25 Acetaminophen 325 Mg Tablet PO Q6H PRN Headache/Pain Mild Scale (1-3) Al Hydroxide/Mg Hydroxide 30 ml 07/20/20 22:25 Magnesium Hydrox/Alum Hydrox 30 Ml Oral.Susp PO Q6H PRN Heartburn/Nausea Amphetamine/Dextroamphetamine 5 mg 07/20/20 09:30 07/27/20 08:18 Amphetamine Mixed Salts 10 Mg Tablet PO 5 mg DAILY KANDY Administration Finasteride 2.5 mg 07/20/20 09:00 07/27/20 08:21 Finasteride 5 Mg Tablet PO 2.5 mg DAILY KANDY Administration Ibuprofen 600 mg 07/21/20 11:53 Ibuprofen 600 Mg Tablet PO Q6H PRN Pain, Moderate (Pain Scale 4-6 Lamotrigine 200 mg 07/20/20 09:15 07/27/20 08:15 Lamotrigine 100 Mg Tablet PO 200 mg DAILY KANDY Administration Lorazepam 1 mg 07/21/20 11:55 07/27/20 20:02 Lorazepam 1 Mg Tablet PO 1 mg TID KANDY Administration Magnesium Hydroxide 30 ml 07/20/20 22:25 07/22/20 20:10 Milk Of Magnesia 30 Ml Oral.Susp PO 30 ml DAILY PRN Administration Constipation Nicotine 21 mg 07/22/20 09:00 07/27/20 08:21 Nicotine 21 Mg Patch.Td24 TRANSDERMA 21 mg DAILY KANDY Administration Nicotine Polacrilex 2 mg 07/19/20 21:47 07/19/20 21:55 Nicotine Polacrilex 2 Mg Gum BUCCAL 2 mg Q2H PRN Administration Nicotine Cravings Risperidone 1 mg 07/25/20 18:58 07/27/20 13:54 Risperidone 0.5 Mg Tablet PO 1 mg Q4H PRN Administration Anxiety Sertraline HCl 100 mg 07/26/20 09:00 07/27/20 08:16 Sertraline Hcl 25 Mg Tablet PO 100 mg DAILY KANDY Administration Trazodone HCl 100 mg 07/23/20 11:36 07/26/20 22:41 Trazodone Hcl 50 Mg Tablet PO 100 mg BEDTIME PRN Administration Insomnia Allergies Allergies Allergy/AdvReac Type Severity Reaction Status Date / Time No Known Allergies Allergy Verified 07/19/20 14:59 Assessment & Plan Assessment & Plan (1) PTSD (post-traumatic stress disorder): Status: Acute Code(s): F43.10 - Post-traumatic stress disorder, unspecified (2) Bipolar 2 disorder, major depressive episode: Status: Acute Code(s): F31.81 - Bipolar II disorder Assessment and Plan: Continue current medications Consider ECT/TMS Greater than 50% of the session was spent on counseling and/or coordination of care Patient educated on: diagnosis, medication risk/benefits, ECT and TMS Informed Consent: further education needed Reason for contiued inpatient stay Substantial Risk for: harm to self, inability to function and rapid decompens ation
[2020-07-27] MEDS: traZODone HCL 50 MG TABLET 100 MG PO (22:57)
--- NOTE | 2020-07-28 | ECG_ITS ---
Test Reason : ECT CLEARENCE Blood Pressure : / mmHG Vent. Rate : 096 BPM Atrial Rate : 096 BPM P-R Int : 136 ms QRS Dur : 090 ms QT Int : 362 ms P-R-T Axes : 031 036 029 degrees QTc Int : 457 ms Normal sinus rhythm Normal ECG When compared with ECG of 27-JUL-2020 10:51, Heart rate has decreased Referred By: Tamy Ibarra Electronically Signed By:ROBYN PICKENS MD
[2020-07-28] MEDS: risperiDONE 0.5 MG TABLET 1 MG PO ×3 (01:40→22:21)
[2020-07-28 01:45] VITALS: BP 158/90; PULSE 102; RESP 18; TEMP 36.6
[2020-07-28 06:50] VITALS: BP 125/74; PULSE 97; RESP 16
--- NOTE | 2020-07-28 09:23 | P.PNPSI_ITS ---
Subjective Subjective Date of Service: 07/28/20 Reason For Visit: Depression Subjective Notes: Conditional Voluntary Interim History: Kamilah reports that she is still feeling quite tearful and agitated. She is very raw, and reactive. She continues to be plagued with thoughts of dying. She feels unsafe and she is having bad dreams. I reviewed her case with Dr. Glass. It remains unclear if the accurate diagnosis is bipolar 2 or major depression, severe. However, at this time her symptoms are very acute and she would benefit from more rapid relief of symptom s. In this case, ECT is indicated. Pros and cons were reviewed with Kamilah, and she agrees. Previous medication trials: Paxil - excessine yawning and tremor Wellbutrin - precipitated marsha Seroquel - felt like a zombie Vistaril - no effect Clonidine - sleepy Prozac - not sure of effect or side effect Abilify - ineffective Adderrall - induces anxiety Lamictal - unsure how helpful this is Risperdal - currently being used, unsure of effect Ativan - very helpful for anxiety Sertaline - currently being used, unsure, may induce marsha Medication Compliance: Yes Side effects from medications: No Attending Groups: Yes Review of Systems Acute medical concerns: No Medical Review of Systems: unchanged Mental Status Exam Mental Status Exam Patient Appearance: Well Grooomed Patient Orientation: Person, Place, Time and Situation Level of Consciousness: Awake Patient Behavior: Appropriate and Cooperative Mood Description: Calm, Depressed, Anxious and Sad Affect Description: Calm, Depressed and Sad Ability to Follow Directions: Excellent Speech Pattern: Clear, Appropriate and Spontaneous Speech Memory Description: Intact Hallucinations: None Delusions: Not Present Thought Process: Rumination and Goal Oriented Thought Content: positive for Circumstantial, positive for Goal Oriented, positive for Linear, negative for Suicidal Ideation and negative for Homicidal Ideation Depressive Symptoms: Increased Anxiety, Insomnia, Diff. Making Decisions, Increased Irritability, Crying Spells, Feelings of Worthlessness, Hopelessness, Feelings of Guilt, Unhappiness, Thoughts of /Suicide, Low Self Esteem and Loss of Energy Judgement: Good Diagnostics Vital Signs (24Hr): Vital Signs - 24 hr 07/27/20 09:31 07/27/20 10:42 07/27/20 13:50 Temperature Pulse Rate 108 H 128 H 124 H Respiratory Rate Blood Pressure 141/85 H Pulse Oximetry 98 07/27/20 17:24 07/27/20 17:25 07/27/20 20:13 Temperature 97.5 F Pulse Rate 98 110 H Respiratory Rate Blood Pressure 127/71 150/86 H 138/89 Pulse Oximetry 95 98 07/28/20 01:45 07/28/20 06:50 Temperature 97.9 F Pulse Rate 102 H 97 Respiratory Rate 18 16 Blood Pressure 158/90 H 125/74 Pulse Oximetry Body Mass Index 30.0 Labs Results: 07/28/20 09:52 07/28/20 09:52 Medications Medications Current Medications Generic Name Dose Route Start Last Admin Trade Name Freq PRN Reason Stop Dose Admin Acetaminophen 650 mg 07/20/20 22:25 Acetaminophen 325 Mg Tablet PO Q6H PRN Headache/Pain Mild Scale (1-3) Al Hydroxide/Mg Hydroxide 30 ml 07/20/20 22:25 Magnesium Hydrox/Alum Hydrox 30 Ml Oral.Susp PO Q6H PRN Heartburn/Nausea Amphetamine/Dextroamphetamine 5 mg 07/20/20 09:30 07/27/20 08:18 Amphetamine Mixed Salts 10 Mg Tablet PO 5 mg DAILY KANDY Administration Finasteride 2.5 mg 07/20/20 09:00 07/27/20 08:21 Finasteride 5 Mg Tablet PO 2.5 mg DAILY KANDY Administration Ibuprofen 600 mg 07/21/20 11:53 Ibuprofen 600 Mg Tablet PO Q6H PRN Pain, Moderate (Pain Scale 4-6 Lamotrigine 200 mg 07/20/20 09:15 07/27/20 08:15 Lamotrigine 100 Mg Tablet PO 200 mg DAILY KANDY Administration Lorazepam 1 mg 07/21/20 11:55 07/27/20 20:02 Lorazepam 1 Mg Tablet PO 1 mg TID KANDY Administration Magnesium Hydroxide 30 ml 07/20/20 22:25 07/22/20 20:10 Milk Of Magnesia 30 Ml Oral.Susp PO 30 ml DAILY PRN Administration Constipation Nicotine 21 mg 07/22/20 09:00 07/27/20 08:21 Nicotine 21 Mg Patch.Td24 TRANSDERMA 21 mg DAILY KANDY Administration Nicotine Polacrilex 2 mg 07/19/20 21:47 07/19/20 21:55 Nicotine Polacrilex 2 Mg Gum BUCCAL 2 mg Q2H PRN Administration Nicotine Cravings Risperidone 1 mg 07/25/20 18:58 07/28/20 01:40 Risperidone 0.5 Mg Tablet PO 1 mg Q4H PRN Administration Anxiety Sertraline HCl 100 mg 07/26/20 09:00 07/27/20 08:16 Sertraline Hcl 25 Mg Tablet PO 100 mg DAILY KANDY Administration Trazodone HCl 100 mg 07/23/20 11:36 07/27/20 22:57 Trazodone Hcl 50 Mg Tablet PO 100 mg BEDTIME PRN Administration Insomnia Allergies Allergies Allergy/AdvReac Type Severity Reaction Status Date / Time No Known Allergies Allergy Verified 07/19/20 14:59 Assessment & Plan Greater than 50% of the session was spent on counseling and/or coordination of care Patient educated on: diagnosis, medication risk/benefits, ECT and TMS Informed Consent: understands Reason for contiued inpatient stay Substantial Risk for: inability to function and rapid decompensation
[2020-07-28 10:07] LABS: MANUAL DIFF FLAG NO
[2020-07-28 10:17] LABS: Basophils Absolute Auto 0.1 X10*3/uL (0.0-0.2); Basophils Percent Auto 0.5 % (0-2); Eosinophils Absolute Auto 0.2 X10*3/uL (0.0-0.4); Eosinophils Percent Auto 2.1 % (0-4); Hematocrit 42.1 % (37-47); Hemoglobin 14.1 g/dl (12.0-16.0); Imm Gran Abs Auto 0.06 X10*3/uL (0.00-0.03); Imm Gran Pct Auto 0.6 % (0.0-0.4); Lymphocytes Absolute Auto 2.4 X10*3/uL (1.2-4.9); Lymphocytes Percent Auto 23.6 % (20-40); Mean Corpuscular HGB Conc 33.5 g/dl (31.0-35.0); Mean Corpuscular Hemoglobin 30.6 pg (27.0-33.0); Mean Corpuscular Volume 91.3 fL (80-98); Mean Platelet Volume 9.5 fL (9.4-12.3); Monocytes Absolute Auto 0.9 X10*3/uL (0.1-1.2); Monocytes Percent Auto 8.3 % (2-11); Neutrophils Absolute Auto 6.6 X10*3/uL (2.0-8.3); Neutrophils Percent Auto 64.9 % (45-73); Platelet Count 345 X10*3/uL (160-400); Red Blood Count 4.61 X10*6/uL (4.20-5.50); Red Cell Distribution Width 12.1 % (11.0-16.0); White Blood Count 10.2 X10*3/uL (4.8-10.8)
[2020-07-28 10:35] LABS: Anion Gap 16 (12-20); Carbon Dioxide 24 mmol/L (22-29); Chloride 103 mmol/L (96-108); Glucose Random 98 mg/dL (60-115); Potassium 4.5 mmol/l (3.3-5.1); Sodium 138 mmol/L (135-145)
[2020-07-28] MEDS: Sertraline HCL 25 MG TABLET 100 MG PO (10:40)
[2020-07-28] MEDS: LORazepam 1 MG TABLET PO ×2 (10:40→14:31)
[2020-07-28] MEDS: Finasteride 5 MG TABLET 2.5 MG PO (10:42)
[2020-07-28 13:00] VITALS: BMI 30.9
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
[2020-07-28 18:00] VITALS: BP 143/84; PULSE 113; TEMP 36.9
[2020-07-28] MEDS: traZODone HCL 50 MG TABLET 100 MG PO (22:21)
[2020-07-29] VITALS (11 sets, daily range): BP systolic 130–149; BP diastolic 74–102; PULSE 97–105; RESP 12–20; TEMP 36.2–37.3; O2SAT 93–97; BMI 30.9
[2020-07-29] MEDS: traZODone HCL 50 MG TABLET PO (00:14)
--- NOTE | 2020-07-29 06:50 | MHC.SHP ---
Pre-Procedural Eval Section A The patient is an INPATIENT: Yes Changes since office visit: No Cold of Flu in the past 2 weeks, No New Medical Problems, No Changes in Medication and No Patient answered all questions The History & Physical has been completed within 30 days and I have reviewed it.: Yes Section B Chief Complaint: Depression Allergies: Allergies Allergy/AdvReac Type Severity Reaction Status Date / Time No Known Allergies Allergy Verified 07/19/20 14:59 Plan Diagnosis/Plan: Unchanged Patient has been examined and remains a candidate for the planned procedure
--- NOTE | 2020-07-29 07:20 | HO.ECTPROC ---
ECT Procedure Note Diagnosis/Treatment Diagnosis: Bipolar disorder Current Treatment Number: 1 Treatment: Series Interval Clinical Notes: ECT ed done ECT Settings Device: THYMATRON DGx Electrode Placement: Right Unilateral Program/Pulse Width: 0.25 Energy Percent: 70 Seizure Duration By EEG (in seconds): 70 By Motor Observation (in seconds): 39 Medications Administration General Anesthetic: Etomidate (16) Muscle Relaxant: Succinylcholine (100) Ancillary Medications Analgesics: Torodol - Pre ECT (15) Anti-emetics: Zofran - Pre ECT (4) Miscillaneous Medications: Propofol (30) and Flumazenil (0.5) Airway Management Airway Management: Bag Mask Ventilation Treatment Recommendations Electrode Placement: Right Unilateral Program/Pulse Width: 0.25 Energy Percent: 70 Pt Tolerated Procedure w/o Issue: Yes
--- NOTE | 2020-07-29 08:05 | P.CONAN_ITS ---
[facility] Past Medical History Medical History (Updated 07/29/20 @ 07:08 by Mi Gonzalez RN) Arthritis PCOS (polycystic ovarian syndrome) Scoliosis Varicose vein of leg Functional capacity: independent ambulation Surgical History Surgical History Hx of appendectomy Social History Social History Household Members: Friend(s) Housing: Apartment Smoking Status: Current every day smoker Tobacco Type: Cigarette Packs Per Day: 0.25 Cigarettes Per Day: 5.0 Years Smoked: 22 Second Hand Smoke Exposure: No Substance Use Type: Marijuana service: No Sexual orientation: Lesbian/Dominguez/Homosexual Meds Allergies Allergy/AdvReac Type Severity Reaction Status Date / Time No Known Allergies Allergy Verified 07/19/20 14:59 Home Medications Medication Instructions Recorded Confirmed Type clonidine HCl 0.3 mg PO BEDTIME 07/19/20 07/19/20 History dextroamphetamine-amphetamine 5 mg PO DAILY 07/19/20 07/19/20 History [Adderall] finasteride 2.5 mg PO DAILY 07/19/20 07/19/20 History lamotrigine 200 mg PO DAILY 07/19/20 07/19/20 History lorazepam 1 mg PO DAILY 07/19/20 07/19/20 History sertraline 25 mg PO DAILY 07/19/20 07/19/20 History Exam Exam Date and Time: July 29, 2020 0805 Height,Weight and Vital Signs: Height 5 ft 7 in Weight 89.6 kg Last Vital Signs Temp 97.7 F 07/29/20 07:37 Pulse 103 H 07/29/20 07:37 Resp 20 07/29/20 07:37 BP 145/92 H 07/29/20 07:37 Pulse Ox 97 07/29/20 07:37 Pertinent Lab Results Pertinent Lab Results: Laboratory Tests 07/19/20 07/19/20 07/19/20 14:35 14:35 15:31 WBC 11.9 H RBC 4.94 Hgb 15.4 Hct 44.6 MCV 90.3 MCH 31.2 MCHC 34.5 RDW 11.9 Plt Count 370 MPV 9.7 Immature Gran % (Auto) 0.5 H Neut % (Auto) 76.9 H Lymph % (Auto) 15.6 L [place] % (Auto) 6.0 Eos % (Auto) 0.6 Baso % (Auto) 0.4 Lymph # (Auto) 1.9 [place] # (Auto) 0.7 Eos # (Auto) 0.1 Baso # (Auto) 0.1 Abs Immat Gran (auto) 0.06 H Absolute Neuts (auto) 9.2 H Absolute Nucleated RBC 0.000 Nucleated RBC % (auto) 0.0 Sodium Potassium Chloride Carbon Dioxide Anion Gap Random Glucose Urine Test NEGATIVE Salicylates Urine Opiates Screen Not Detected Acetaminophen Ur Barbiturates Screen Not Detected Ur Phencyclidine Scrn Not Detected Ur Amphetamines Screen Not Detected U Benzodiazepines Scrn Not Detected Urine Cocaine Screen Not Detected U Marijuana (THC) Screen POSITIVE H Ethyl Alcohol Coronavirus (PCR) 07/19/20 07/19/20 07/20/20 15:31 15:31 14:35 WBC RBC Hgb Hct MCV MCH MCHC RDW Plt Count MPV Immature Gran % (Auto) Neut % (Auto) Lymph % (Auto) [place] % (Auto) Eos % (Auto) Baso % (Auto) Lymph # (Auto) [place] # (Auto) Eos # (Auto) Baso # (Auto) Abs Immat Gran (auto) Absolute Neuts (auto) Absolute Nucleated RBC Nucleated RBC % (auto) Sodium Potassium Chloride Carbon Dioxide Anion Gap Random Glucose Urine Test Salicylates < 5.0 L Urine Opiates Screen Acetaminophen < 1 Ur Barbiturates Screen Ur Phencyclidine Scrn Ur Amphetamines Screen U Benzodiazepines Scrn Urine Cocaine Screen U Marijuana (THC) Screen Ethyl Alcohol < 10 Coronavirus (PCR) NEGATIVE 07/28/20 07/28/20 09:52 09:52 WBC 10.2 RBC 4.61 Hgb 14.1 Hct 42.1 MCV 91.3 MCH 30.6 MCHC 33.5 RDW 12.1 Plt Count 345 MPV 9.5 Immature Gran % (Auto) 0.6 H Neut % (Auto) 64.9 Lymph % (Auto) 23.6 [place] % (Auto) 8.3 Eos % (Auto) 2.1 Baso % (Auto) 0.5 Lymph # (Auto) 2.4 [place] # (Auto) 0.9 Eos # (Auto) 0.2 Baso # (Auto) 0.1 Abs Immat Gran (auto) 0.06 H Absolute Neuts (auto) 6.6 Absolute Nucleated RBC 0.000 Nucleated RBC % (auto) 0.0 Sodium 138 Potassium 4.5 Chloride 103 Carbon Dioxide 24 Anion Gap 16 Random Glucose 98 Urine Test Salicylates Urine Opiates Screen Acetaminophen Ur Barbiturates Screen Ur Phencyclidine Scrn Ur Amphetamines Screen U Benzodiazepines Scrn Urine Cocaine Screen U Marijuana (THC) Screen Ethyl Alcohol Coronavirus (PCR) Airway Mallampati Class: II TM Dist: >3cm Neck ROM: Full Loose/Missing/Broken Teeth: No ([place] intact) Heart: RRR Lungs: CTAB Assessment and Plan Assessment Anesthesia Assessment: Anesthesia Plan Discussed and Chart Reviewed Final Anesthetic Review NPO: Yes ASA Class: II Final Preanesthetic Review: No Changes in Pt Med Stat, Meds/Allgs Chart Reviewed, Consent Obtained/Reviewed and Anes Risks/Benef Reviewed Patient Risk: Intermediate Procedure Risk: Intermediate Anesthetic Plan Anesthetic Plan: GA Disposition: Standard PACU and Inp. Admit - Standard Bed
[2020-07-29] MEDS: Lactated Ringers 1,000 ML 50 ML IVCONT (08:35)
--- NOTE | 2020-07-29 09:24 | HO.POSTANES ---
Post Anesthesia Evaluation Post Anesthesia Evaluation Vital Signs: Vital Signs Temp Pulse Resp BP Pulse Ox 07/29/20 09:20 102 H 20 149/90 H 96 07/29/20 09:05 97 20 138/77 96 07/29/20 08:50 105 H 20 130/81 93 07/29/20 08:45 98 20 94 07/29/20 08:40 102 H 16 142/81 H 93 07/29/20 08:35 99.2 F 100 12 136/80 93 07/29/20 07:37 97.7 F 103 H 20 145/92 H 97 07/29/20 06:17 97.3 F 99 16 132/74 97 Anesthesia: General Mental Status: Awake Pain Control: Satisfactory Nausea/Vomiting: None Hydration: Adequate Anesthesia-Related Issues: No Anes. Related Issues
--- NOTE | 2020-07-29 10:09 | P.PNPSI_ITS ---
Subjective Subjective Reason For Visit: Depression Interim History: See ECT note. S/P ECT #1. Excellent tolerance Previous: Kamilah reports that she is still feeling quite tearful and agitated. She is very raw, and reactive. She continues to be plagued with thoughts of dying. She feels unsafe and she is having bad dreams. I reviewed her case with Dr. Glass. It remains unclear if the accurate diagnosis is bipolar 2 or major depression, severe. However, at this time her symptoms are very acute and she would benefit from more rapid relief of symptoms. In this case, ECT is indicated. Pros and cons were reviewed with Kamilah, and she agrees. Previous medication trials: Paxil - excessine yawning and tremor Wellbutrin - precipitated marsha Seroquel - felt like a zombie Vistaril - no effect Clonidine - sleepy Prozac - not sure of effect or side effect Abilify - ineffective Adderrall - induces anxiety Lamictal - unsure how helpful this is Risperdal - currently being used, unsure of effect Ativan - very helpful for anxiety Sertaline - currently being used, unsure, may induce marsha Review of Systems Comments: Mild post ECT CHAUDHARI Mental Status Exam Mental Status Exam Patient Appearance: Well Grooomed Patient Orientation: Person, Place, Time and Situation Level of Consciousness: Awake Patient Behavior: Appropriate and Cooperative Mood Description: Calm, Depressed, Anxious and Sad Affect Description: Calm, Depressed and Sad Ability to Follow Directions: Excellent Speech Pattern: Clear, Appropriate and Spontaneous Speech Memory Description: Intact Diagnostics Vital Signs (24Hr): Vital Signs - 24 hr 07/29/20 07:37 07/29/20 08:35 07/29/20 08:40 Temperature 97.7 F 99.2 F Pulse Rate 103 H 100 102 H Respiratory Rate 20 12 16 Blood Pressure 145/92 H 136/80 142/81 H Pulse Oximetry 97 93 93 07/29/20 08:45 07/29/20 08:50 07/29/20 09:05 Temperature Pulse Rate 98 105 H 97 Respiratory Rate 20 20 20 Blood Pressure 130/81 138/77 Pulse Oximetry 94 93 96 07/29/20 09:20 07/29/20 10:00 07/29/20 18:00 Temperature 97.2 F 98.2 F Pulse Rate 102 H 99 Respiratory Rate 20 16 Blood Pressure 149/90 H 135/102 H 137/79 Pulse Oximetry 96 96 07/29/20 21:54 07/30/20 06:25 Temperature 98.2 F Pulse Rate 101 H 106 H Respiratory Rate 18 Blood Pressure 137/79 101/57 L Pulse Oximetry Body Mass Index 30.9 Labs Results: 07/28/20 09:52 07/28/20 09:52 Labs: Laboratory Results - last 48 hr 07/28/20 07/28/20 09:52 09:52 WBC 10.2 RBC 4.61 Hgb 14.1 Hct 42.1 MCV 91.3 MCH 30.6 MCHC 33.5 RDW 12.1 Plt Count 345 MPV 9.5 Immature Gran % (Auto) 0.6 H Neut % (Auto) 64.9 Lymph % (Auto) 23.6 [place] % (Auto) 8.3 Eos % (Auto) 2.1 Baso % (Auto) 0.5 Lymph # (Auto) 2.4 [place] # (Auto) 0.9 Eos # (Auto) 0.2 Baso # (Auto) 0.1 Abs Immat Gran (auto) 0.06 H Absolute Neuts (auto) 6.6 Absolute Nucleated RBC 0.000 Nucleated RBC % (auto) 0.0 Sodium 138 Potassium 4.5 Chloride 103 Carbon Dioxide 24 Anion Gap 16 Random Glucose 98 Medications Medications Current Medications Generic Name Dose Route Start Last Admin Trade Name Freq PRN Reason Stop Dose Admin Acetaminophen 650 mg 07/29/20 08:39 07/29/20 11:53 Acetaminophen 325 Mg Tablet PO 650 mg Q6H PRN Administration Headache/Pain Mild Scale (1-3) Al Hydroxide/Mg Hydroxide 30 ml 07/29/20 08:39 Magnesium Hydrox/Alum Hydrox 30 Ml Oral.Susp PO Q6H PRN Heartburn/Nausea Clonidine HCl 0.3 mg 07/29/20 21:00 07/29/20 21:54 Clonidine Hcl 0.1 Mg Tablet PO 0.3 mg BEDTIME KANDY Administration Protocol Hydroxyzine HCl 25 mg 07/29/20 08:39 Hydroxyzine Hcl 25 Mg Tablet PO BEDTIME PRN Anxiety Lorazepam 1 mg 07/29/20 13:30 07/29/20 15:16 Lorazepam 1 Mg Tablet PO 1 mg BID@0830,1330 KANDY Administration Magnesium Hydroxide 30 ml 07/29/20 08:39 07/29/20 15:16 Milk Of Magnesia 30 Ml Oral.Susp PO 30 ml DAILY PRN Administration Constipation Risperidone 1 mg 07/29/20 10:59 07/29/20 13:03 Risperidone 1 Mg Tablet PO 1 mg Q6H PRN Administration Anxiety Sertraline HCl 100 mg 07/30/20 09:00 Sertraline Hcl 100 Mg Tablet PO DAILY KANDY Trazodone HCl 50 mg 07/29/20 08:39 Trazodone Hcl 50 Mg Tablet PO BEDTIME PRN Insomnia Trazodone HCl 100 mg 07/29/20 21:00 07/29/20 21:54 Trazodone Hcl 100 Mg Tablet PO 100 mg BEDTIME MRX1 KANDY Administration Allergies Allergies Allergy/AdvReac Type Severity Reaction Status Date / Time No Known Allergies Allergy Verified 07/19/20 14:59 Assessment & Plan Assessment & Plan (1) PTSD (post-traumatic stress disorder): Status: Acute Code(s): F43.10 - Post-traumatic stress disorder, unspecified (2) Bipolar 2 disorder, major depressive episode: Status: Acute Code(s): F31.81 - Bipolar II disorder (3) Depression: Qualifiers: Active/Remission status: currently active Depression Type: major depressive disorder Major depression episode severity: severe Major depression recurrence: recurrent Psychotic features: with psychotic features Qualified Code(s): F33.3 - Major depressive disorder, recurrent, severe with psychotic symptoms Status: Acute Code(s): F32.9 - Major depressive disorder, single episode, unspecified Assessment and Plan: Ct ECT/ meds Greater than 50% of the session was spent on counseling and/or coordination of care
[2020-07-29] MEDS: Acetaminophen 325 MG TABLET 650 MG PO (11:53)
[2020-07-29] MEDS: Sertraline HCL 100 MG TABLET PO (11:53)
[2020-07-29] MEDS: LORazepam 1 MG TABLET PO ×2 (11:54→15:16)
[2020-07-29] MEDS: risperiDONE 1 MG TABLET PO (13:03)
[2020-07-29] MEDS: Milk of Magnesia 30 ML ORAL.SUSP PO (15:16)
[2020-07-29] MEDS: cloNIDine HCL 0.1 MG TABLET 0.3 MG PO (21:54)
[2020-07-29] MEDS: traZODone HCL 100 MG TABLET PO (21:54)
[2020-07-30 06:25] VITALS: BP 101/57; PULSE 106; RESP 18; TEMP 36.8
[2020-07-30] MEDS: LORazepam 1 MG TABLET PO ×2 (08:31→13:39)
[2020-07-30] MEDS: Acetaminophen 325 MG TABLET 650 MG PO (08:31)
[2020-07-30] MEDS: Sertraline HCL 100 MG TABLET PO (08:33)
--- NOTE | 2020-07-30 10:51 | HO.PSYCHPN ---
Subjective Subjective Date of Service: 07/30/20 Reason For Visit: Depression Subjective Notes: Conditional Voluntary Interim History: Pt reports struggling with irritability, concerned re off lamotrigine- wondering also about dec ativan discussed used of risperidone prn as her mood stabilizer and why held to Medication Compliance: Yes Side effects from medications: No Attending Groups: Yes Review of Systems Review of Systems tolerated ECt well first one- Yes all other systems are reviewed and are negative Mental Status Exam Mental Status Exam Narrative: anxious, well kempt / groomed Patient Appearance: Well Grooomed Patient Orientation: Person, Place, Time and Situation Level of Consciousness: Awake and Appropriate Patient Behavior: Appropriate, Dependent and Cooperative Mood Description: Depressed and Apprehensive Affect Description: Calm Patient Cognition Impaired: No Ability to Follow Directions: Good Speech Pattern: Clear Memory Description: Intact Hallucinations: None Delusions: Not Present Thought Process: Intact Thought Content: positive for Intact Depressive Symptoms: Increased Anxiety, Diff. Making Decisions, Increased Irritability, Unhappiness, Thoughts of /Suicide (less last pm - didn't think to herself I hope I don't wake up tomorrow), Loss of Energy and Difficulty Concentrating Judgement: Fair Diagnostics Vital Signs (24Hr): Vital Signs - 24 hr 07/29/20 18:00 07/29/20 21:54 07/30/20 06:25 Temperature 98.2 F 98.2 F Pulse Rate 101 H 106 H Respiratory Rate 18 Blood Pressure 137/79 137/79 101/57 L Body Mass Index 30.9 Labs Results: 07/28/20 09:52 07/28/20 09:52 Medications Medications Current Medications Generic Name Dose Route Start Last Admin Trade Name Jezq PRN Reason Stop Dose Admin Acetaminophen 650 mg 07/29/20 08:39 07/30/20 08:31 Acetaminophen 325 Mg Tablet PO 650 mg Q6H PRN Administration Headache/Pain Mild Scale (1-3) Al Hydroxide/Mg Hydroxide 30 ml 07/29/20 08:39 Magnesium Hydrox/Alum Hydrox 30 Ml Oral.Susp PO Q6H PRN Heartburn/Nausea Clonidine HCl 0.3 mg 07/29/20 21:00 07/29/20 21:54 Clonidine Hcl 0.1 Mg Tablet PO 0.3 mg BEDTIME KANDY Administration Protocol Hydroxyzine HCl 25 mg 07/29/20 08:39 Hydroxyzine Hcl 25 Mg Tablet PO BEDTIME PRN Anxiety Lorazepam 1 mg 07/29/20 13:30 07/30/20 08:31 Lorazepam 1 Mg Tablet PO 1 mg BID@0830,1330 KANDY Administration Magnesium Hydroxide 30 ml 07/29/20 08:39 07/29/20 15:16 Milk Of Magnesia 30 Ml Oral.Susp PO 30 ml DAILY PRN Administration Constipation Risperidone 1 mg 07/29/20 10:59 07/29/20 13:03 Risperidone 1 Mg Tablet PO 1 mg Q6H PRN Administration Anxiety Sertraline HCl 100 mg 07/30/20 09:00 07/30/20 08:33 Sertraline Hcl 100 Mg Tablet PO 100 mg DAILY KANDY Administration Trazodone HCl 50 mg 07/29/20 08:39 Trazodone Hcl 50 Mg Tablet PO BEDTIME PRN Insomnia Trazodone HCl 100 mg 07/29/20 21:00 07/29/20 21:54 Trazodone Hcl 100 Mg Tablet PO 100 mg BEDTIME MRX1 KANDY Administration Allergies Allergies Allergy/AdvReac Type Severity Reaction Status Date / Time No Known Allergies Allergy Verified 07/19/20 14:59 Assessment & Plan Assessment & Plan (1) PTSD (post-traumatic stress disorder): Status: Acute Code(s): F43.10 - Post-traumatic stress disorder, unspecified Assessment and Plan: ongoing groups and meds (2) Bipolar 2 disorder, major depressive episode: Status: Acute Code(s): F31.81 - Bipolar II disorder Assessment and Plan: getting ECT for severe depression- Greater than 50% of the session was spent on counseling and/or coordination of care
[2020-07-30] MEDS: Ibuprofen 400 MG TABLET PO (15:02)
[2020-07-30 20:42] VITALS: BP 165/96; PULSE 104
[2020-07-30] MEDS: cloNIDine HCL 0.1 MG TABLET 0.3 MG PO (20:42)
[2020-07-30 20:44] VITALS: TEMP 36.3
[2020-07-30] MEDS: traZODone HCL 100 MG TABLET PO (21:47)
[2020-07-31 06:15] VITALS: BP 112/55; PULSE 89; RESP 18; TEMP 36.2; O2SAT 97
[2020-07-31] MEDS: Sertraline HCL 100 MG TABLET PO (08:40)
[2020-07-31] MEDS: LORazepam 1 MG TABLET PO ×3 (08:40→16:38)
[2020-07-31] MEDS: risperiDONE 1 MG TABLET PO (13:37)
--- NOTE | 2020-07-31 14:59 | HO.PSYCHPN ---
Subjective Subjective Date of Service: 07/31/20 Reason For Visit: Depression Subjective Notes: Conditional Voluntary Interim History: Struggling with anxiety , irritability and depression off lamotrigine and lower lorazepam night before ect tammy ended up requesting prn lorazepam at 4pm reviewed with dr beaulieu had already taken prn risperidone Medication Compliance: Yes Side effects from medications: No Attending Groups: Yes Review of Systems Acute medical concerns: No Medical Review of Systems: unchanged Review of Systems Review of Systems Yes all other systems are reviewed and are negative Mental Status Exam Mental Status Exam Narrative: restless leg concerned about s/e of medications but also concnered about her anxiety and worsening mood between ects Patient Appearance: Appropriate Patient Orientation: Person, Place, Time and Situation Level of Consciousness: Awake and Appropriate Patient Behavior: Appropriate Behavior Comments: some restlessness in legs says she has had forever and correlates with her anxiety Mood Description: Withdrawn, Depressed and Anxious Affect Description: Anxious and Sad Patient Cognition Impaired: No Ability to Follow Directions: Good Speech Pattern: Clear Hallucinations: None Thought Process: Intact Thought Content: positive for Intact and positive for Suicidal Ideation (passive) Depressive Symptoms: Increased Anxiety and Increased Irritability Judgement: Fair Diagnostics Vital Signs (24Hr): Vital Signs - 24 hr 07/30/20 20:42 07/30/20 20:44 07/31/20 06:15 Temperature 97.4 F 97.1 F Pulse Rate 104 H 89 Respiratory Rate 18 Blood Pressure 165/96 H 112/55 L Pulse Oximetry 97 Body Mass Index 30.9 Labs Results: 07/28/20 09:52 07/28/20 09:52 Medications Medications Current Medications Generic Name Dose Route Start Last Admin Trade Name Freq PRN Reason Stop Dose Admin Acetaminophen 650 mg 07/29/20 08:39 07/30/20 08:31 Acetaminophen 325 Mg Tablet PO 650 mg Q6H PRN Administration Headache/Pain Mild Scale (1-3) Al Hydroxide/Mg Hydroxide 30 ml 07/29/20 08:39 Magnesium Hydrox/Alum Hydrox 30 Ml Oral.Susp PO Q6H PRN Heartburn/Nausea Clonidine HCl 0.3 mg 07/29/20 21:00 07/30/20 20:42 Clonidine Hcl 0.1 Mg Tablet PO 0.3 mg BEDTIME KANDY Administration Protocol Finasteride 2.5 mg 07/31/20 15:00 Finasteride 5 Mg Tablet PO DAILY KANDY Hydroxyzine HCl 25 mg 10/30/20 08:39 Hydroxyzine Hcl 25 Mg Tablet PO BEDTIME PRN Anxiety Ibuprofen 400 mg 07/30/20 13:51 07/30/20 15:02 Ibuprofen 400 Mg Tablet PO 400 mg TIDWM PRN Administration Pain, Moderate (Pain Scale 4-6 Lorazepam 1 mg 07/29/20 13:30 07/31/20 12:57 Lorazepam 1 Mg Tablet PO 1 mg BID@0830,1330 KANDY Administration Magnesium Hydroxide 30 ml 07/29/20 08:39 07/29/20 15:16 Milk Of Magnesia 30 Ml Oral.Susp PO 30 ml DAILY PRN Administration Constipation Nicotine Polacrilex 2 mg 07/31/20 13:01 07/31/20 13:37 Nicotine Polacrilex 2 Mg Lozenge BUCCAL 2 mg Q2H PRN Administration nicotene withdrawl Risperidone 1 mg 07/29/20 10:59 07/31/20 13:37 Risperidone 1 Mg Tablet PO 1 mg Q6H PRN Administration Anxiety Sertraline HCl 100 mg 07/30/20 09:00 07/31/20 08:40 Sertraline Hcl 100 Mg Tablet PO 100 mg DAILY AKNDY Administration Trazodone HCl 100 mg 07/30/20 21:00 07/30/20 21:47 Trazodone Hcl 100 Mg Tablet PO 100 mg BEDTIME MRX1 PRN Administration insomnia Allergies Allergies Allergy/AdvReac Type Severity Reaction Status Date / Time No Known Allergies Allergy Verified 07/19/20 14:59 Assessment & Plan Assessment & Plan (1) Bipolar 2 disorder, major depressive episode: Status: Acute Code(s): F31.81 - Bipolar II disorder Assessment and Plan: struggline iwth anxiety and irritaiblity and depression ? mixed episode but tammy now that off lamotrigine doesn't want to take risperidone daily due to risk to weight (2) PTSD (post-traumatic stress disorder): Status: Acute Code(s): F43.10 - Post-traumatic stress disorder, unspecified Assessment and Plan: going to some groups missed a few Greater than 50% of the session was spent on counseling and/or coordination of care
[2020-07-31] MEDS: Finasteride 5 MG TABLET 2.5 MG PO (16:38)
[2020-07-31 22:50] VITALS: BP 145/80; PULSE 95; RESP 16; TEMP 36.1
[2020-07-31 22:56] VITALS: BP 145/80; PULSE 95
[2020-07-31] MEDS: traZODone HCL 100 MG TABLET PO (22:56)
[2020-07-31] MEDS: cloNIDine HCL 0.1 MG TABLET 0.3 MG PO (22:56)
[2020-08-01] VITALS (12 sets, daily range): BP systolic 119–147; BP diastolic 54–92; PULSE 79–103; RESP 16–20; TEMP 36.2–37.2; O2SAT 93–98
--- NOTE | 2020-08-01 12:40 | HO.ANESPROP2 ---
[facility] Past Medical History Medical History (Updated 08/01/20 @ 12:43 by Fransisca Copeland) Arthritis Bipolar 2 disorder, major depressive episode Depression PCOS (polycystic ovarian syndrome) PTSD (post-traumatic stress disorder) Scoliosis Varicose vein of leg Functional capacity: independent ambulation Surgical History Surgical History Hx of appendectomy Social History Social History Household Members: Friend(s) Housing: Apartment Smoking Status: Current every day smoker Tobacco Type: Cigarette Packs Per Day: 0.25 Cigarettes Per Day: 5.0 Years Smoked: 22 Second Hand Smoke Exposure: No Substance Use Type: Marijuana service: No Sexual orientation: Lesbian/Dominguez/Homosexual Meds Allergies Allergy/AdvReac Type Severity Reaction Status Date / Time No Known Allergies Allergy Verified 07/19/20 14:59 Home Medications Medication Instructions Recorded Confirmed Type clonidine HCl 0.3 mg PO BEDTIME 07/19/20 07/19/20 History dextroamphetamine-amphetamine 5 mg PO DAILY 07/19/20 07/19/20 History [Adderall] finasteride 2.5 mg PO DAILY 07/19/20 07/19/20 History lamotrigine 200 mg PO DAILY 07/19/20 07/19/20 History lorazepam 1 mg PO DAILY 07/19/20 07/19/20 History sertraline 25 mg PO DAILY 07/19/20 07/19/20 History Exam Exam Date and Time: August 01, 2020 1240 Height,Weight and Vital Signs: Height 5 ft 7 in Weight 89.6 kg Last Vital Signs Temp 97.2 F 08/01/20 05:50 Pulse 87 08/01/20 05:50 Resp 16 08/01/20 05:50 BP 133/66 08/01/20 05:50 Pulse Ox 96 08/01/20 05:50 Pertinent Lab Results Pertinent Lab Results: Laboratory Tests 07/19/20 07/19/20 07/19/20 14:35 14:35 15:31 WBC 11.9 H RBC 4.94 Hgb 15.4 Hct 44.6 MCV 90.3 MCH 31.2 MCHC 34.5 RDW 11.9 Plt Count 370 MPV 9.7 Immature Gran % (Auto) 0.5 H Neut % (Auto) 76.9 H Lymph % (Auto) 15.6 L [place] % (Auto) 6.0 Eos % (Auto) 0.6 Baso % (Auto) 0.4 Lymph # (Auto) 1.9 [place] # (Auto) 0.7 Eos # (Auto) 0.1 Baso # (Auto) 0.1 Abs Immat Gran (auto) 0.06 H Absolute Neuts (auto) 9.2 H Absolute Nucleated RBC 0.000 Nucleated RBC % (auto) 0.0 Sodium Potassium Chloride Carbon Dioxide Anion Gap Random Glucose Urine Test NEGATIVE Salicylates Urine Opiates Screen Not Detected Acetaminophen Ur Barbiturates Screen Not Detected Ur Phencyclidine Scrn Not Detected Ur Amphetamines Screen Not Detected U Benzodiazepines Scrn Not Detected Urine Cocaine Screen Not Detected U Marijuana (THC) Screen POSITIVE H Ethyl Alcohol Coronavirus (PCR) 07/19/20 07/19/20 07/20/20 15:31 15:31 14:35 WBC RBC Hgb Hct MCV MCH MCHC RDW Plt Count MPV Immature Gran % (Auto) Neut % (Auto) Lymph % (Auto) [place] % (Auto) Eos % (Auto) Baso % (Auto) Lymph # (Auto) [place] # (Auto) Eos # (Auto) Baso # (Auto) Abs Immat Gran (auto) Absolute Neuts (auto) Absolute Nucleated RBC Nucleated RBC % (auto) Sodium Potassium Chloride Carbon Dioxide Anion Gap Random Glucose Urine Test Salicylates < 5.0 L Urine Opiates Screen Acetaminophen < 1 Ur Barbiturates Screen Ur Phencyclidine Scrn Ur Amphetamines Screen U Benzodiazepines Scrn Urine Cocaine Screen U Marijuana (THC) Screen Ethyl Alcohol < 10 Coronavirus (PCR) NEGATIVE 07/28/20 07/28/20 09:52 09:52 WBC 10.2 RBC 4.61 Hgb 14.1 Hct 42.1 MCV 91.3 MCH 30.6 MCHC 33.5 RDW 12.1 Plt Count 345 MPV 9.5 Immature Gran % (Auto) 0.6 H Neut % (Auto) 64.9 Lymph % (Auto) 23.6 [place] % (Auto) 8.3 Eos % (Auto) 2.1 Baso % (Auto) 0.5 Lymph # (Auto) 2.4 [place] # (Auto) 0.9 Eos # (Auto) 0.2 Baso # (Auto) 0.1 Abs Immat Gran (auto) 0.06 H Absolute Neuts (auto) 6.6 Absolute Nucleated RBC 0.000 Nucleated RBC % (auto) 0.0 Sodium 138 Potassium 4.5 Chloride 103 Carbon Dioxide 24 Anion Gap 16 Random Glucose 98 Urine Test Salicylates Urine Opiates Screen Acetaminophen Ur Barbiturates Screen Ur Phencyclidine Scrn Ur Amphetamines Screen U Benzodiazepines Scrn Urine Cocaine Screen U Marijuana (THC) Screen Ethyl Alcohol Coronavirus (PCR) Airway Mallampati Class: I TM Dist: >3cm Neck ROM: Full Heart: RRR Lungs: CTA Assessment and Plan Assessment Anesthesia Assessment: Anesthesia Plan Discussed and Chart Reviewed Final Anesthetic Review NPO: Yes ASA Class: II Final Preanesthetic Review: Meds/Allgs Chart Reviewed, Consent Obtained/Reviewed and Anes Risks/Benef Reviewed Patient Risk: Intermediate Anesthetic Plan Anesthetic Plan: GA Disposition: Standard PACU
--- NOTE | 2020-08-01 13:11 | MHC.SHP ---
Pre-Procedural Eval Section A The patient is an INPATIENT: Yes Changes since office visit: Yes Patient answered all questions; No Cold of Flu in the past 2 weeks and No New Medical Problems The History & Physical has been completed within 30 days and I have reviewed it.: Yes Section B Chief Complaint: Depression Allergies: Allergies Allergy/AdvReac Type Severity Reaction Status Date / Time No Known Allergies Allergy Verified 07/19/20 14:59 Plan Patient has been examined and remains a candidate for the planned procedure
--- NOTE | 2020-08-01 13:12 | HO.ECTPROC ---
ECT Procedure Note Diagnosis/Treatment Diagnosis: Bipolar disorder Current Treatment Number: 2 Treatment: Series Interval Clinical Notes: Tolerated first ect well no c/o side effects ECT Settings Device: THYMATRON DGx Electrode Placement: Right Unilateral Program/Pulse Width: 0.25 Energy Percent: 70 Seizure Duration By EEG (in seconds): 61 Medications Administration General Anesthetic: Etomidate (16) Muscle Relaxant: Succinylcholine (100) Ancillary Medications Analgesics: Torodol - Pre ECT (15) Anti-emetics: Zofran - Pre ECT (4) Miscillaneous Medications: Propofol (30) and Flumazenil (0.5) Airway Management Airway Management: Bag Mask Ventilation Treatment Recommendations Electrode Placement: Right Unilateral Program/Pulse Width: 0.25 Energy Percent: 70 Pt Tolerated Procedure w/o Issue: Yes
[2020-08-01] MEDS: Finasteride 5 MG TABLET 2.5 MG PO (15:17)
[2020-08-01] MEDS: Sertraline HCL 100 MG TABLET PO (15:19)
[2020-08-01] MEDS: LORazepam 1 MG TABLET PO (15:19)
[2020-08-01] MEDS: Ibuprofen 400 MG TABLET PO (19:01)
[2020-08-01] MEDS: traZODone HCL 100 MG TABLET PO (22:13)
[2020-08-01] MEDS: cloNIDine HCL 0.1 MG TABLET 0.3 MG PO (22:13)
--- NOTE | 2020-08-02 03:05 | PC.NURSE ---
pATIENT COMPLAINED OF CONSTIPATION AND REQUESTED FLEETS ENEMA. DR. PETTY WAS NOTIFIED AND PATIENT WAS ALLOWED TO GIVE HERSELF THE FLEETS ENEMA. POSITIVE EFFECT AND PATIENT REPORTED RELIEF.
--- NOTE | 2020-08-02 05:20 | P.PNPSI_ITS ---
Subjective Subjective Reason For Visit: Depression Interim History: Tolerating ECT well. S/P ECT x 2. Mild CHAUDHARI. Anxiety responding to Seroquel. Signed [address] ECT as outpt. Mood better. WIL Chanel. Review of Systems Review of Systems Yes all other systems are reviewed and are negative Mental Status Exam Mental Status Exam Narrative: restless leg concerned about s/e of medications but also concnered about her anxiety and worsening mood between ects Patient Appearance: Appropriate Patient Orientation: Person, Place, Time and Situation Level of Consciousness: Awake and Appropriate Patient Behavior: Appropriate Behavior Comments: some restlessness in legs says she has had forever and correlates with her anxiety Mood Description: Withdrawn, Depressed and Anxious Affect Description: Anxious and Sad Patient Cognition Impaired: No Ability to Follow Directions: Good Speech Pattern: Clear Memory Description: Intact Diagnostics Vital Signs (24Hr): Vital Signs - 24 hr 08/01/20 05:35 08/01/20 05:50 08/01/20 13:00 Temperature 97.2 F 97.2 F 97.2 F Pulse Rate 87 87 87 Respiratory Rate 16 16 16 Blood Pressure 133/66 133/66 133/66 Pulse Oximetry 96 96 96 08/01/20 13:28 08/01/20 13:50 08/01/20 13:55 Temperature 97.7 F 98.9 F Pulse Rate 103 H 79 101 H Respiratory Rate 20 18 18 Blood Pressure 145/92 H 147/87 H 132/69 Pulse Oximetry 97 98 98 08/01/20 14:00 08/01/20 14:05 08/01/20 14:20 Temperature 98.9 F Pulse Rate 94 91 90 Respiratory Rate 18 18 18 Blood Pressure 119/61 135/54 L 119/67 Pulse Oximetry 94 93 95 08/01/20 16:16 08/01/20 22:00 08/01/20 22:13 Temperature 97.9 F 97.2 F Pulse Rate 87 92 92 Respiratory Rate Blood Pressure 132/82 144/83 H 144/83 H Pulse Oximetry Body Mass Index 30.9 Labs Results: 07/28/20 09:52 07/28/20 09:52 Medications Medications Current Medications Generic Name Dose Route Start Last Admin Trade Name Freq PRN Reason Stop Dose Admin Acetaminophen 650 mg 07/29/20 08:39 07/30/20 08:31 Acetaminophen 325 Mg Tablet PO 650 mg Q6H PRN Administration Headache/Pain Mild Scale (1-3) Al Hydroxide/Mg Hydroxide 30 ml 07/29/20 08:39 Magnesium Hydrox/Alum Hydrox 30 Ml Oral.Susp PO Q6H PRN Heartburn/Nausea Albuterol Sulfate 2.5 mg 08/01/20 13:17 Albuterol Sulfate (0.083%) 2.5 Mg/3 Ml Vial.Neb INHALE ONCE PRN Wheezing Clonidine HCl 0.3 mg 07/29/20 21:00 08/01/20 22:13 Clonidine Hcl 0.1 Mg Tablet PO 0.3 mg BEDTIME KANDY Administration Protocol Finasteride 2.5 mg 07/31/20 15:00 08/01/20 15:17 Finasteride 5 Mg Tablet PO 2.5 mg DAILY KANDY Administration Hydroxyzine HCl 25 mg 07/29/20 08:39 Hydroxyzine Hcl 25 Mg Tablet PO BEDTIME PRN Anxiety Ibuprofen 400 mg 07/30/20 13:51 08/01/20 19:01 Ibuprofen 400 Mg Tablet PO 400 mg TIDWM PRN Administration Pain, Moderate (Pain Scale 4-6 Lorazepam 1 mg 07/29/20 13:30 08/01/20 15:19 Lorazepam 1 Mg Tablet PO 1 mg BID@0830,1330 KANDY Administration Magnesium Hydroxide 30 ml 07/29/20 08:39 07/29/20 15:16 Milk Of Magnesia 30 Ml Oral.Susp PO 30 ml DAILY PRN Administration Constipation Nicotine Polacrilex 2 mg 07/31/20 13:01 07/31/20 13:37 Nicotine Polacrilex 2 Mg Lozenge BUCCAL 2 mg Q2H PRN Administration nicotene withdrawl Quetiapine Fumarate 25 mg 08/01/20 09:59 Quetiapine Fumarate 25 Mg Tablet PO RQ6H PRN anxiety/restlessness Risperidone 1 mg 07/29/20 10:59 07/31/20 13:37 Risperidone 1 Mg Tablet PO 1 mg Q6H PRN Administration Anxiety Sertraline HCl 100 mg 07/30/20 09:00 08/01/20 15:19 Sertraline Hcl 100 Mg Tablet PO 100 mg DAILY KANDY Administration Sodium Biphosphate/Sodium Phosphate 133 ml 08/01/20 19:37 Sodium Phosphate,[place]-Dibasic 133 Ml Enema [place] ONCE PRN Constipation Trazodone HCl 100 mg 07/30/20 21:00 11/02/20 22:13 Trazodone Hcl 100 Mg Tablet PO 100 mg BEDTIME MRX1 PRN Administration insomnia Allergies Allergies Allergy/AdvReac Type Severity Reaction Status Date / Time No Known Allergies Allergy Verified 07/19/20 14:59 Assessment & Plan Assessment & Plan (1) Bipolar 2 disorder, major depressive episode: Status: Acute Code(s): F31.81 - Bipolar II disorder Assessment and Plan: Ct ECT. DC Thurs to ct w ECT as OP (2) PTSD (post-traumatic stress disorder): Status: Acute Code(s): F43.10 - Post-traumatic stress disorder, unspecified Assessment and Plan: going to some groups missed a few Greater than 50% of the session was spent on counseling and/or coordination of care
[2020-08-02 06:05] VITALS: BP 121/57; PULSE 88; RESP 18; TEMP 36.2
--- NOTE | 2020-08-02 08:27 | PC.NURSE ---
Pt signed 3-day notice, up on 08/05. , shin aviles, social work aware
[2020-08-02 08:33] VITALS: BP 121/57; PULSE 88
[2020-08-02] MEDS: LORazepam 1 MG TABLET PO ×2 (08:33→14:26)
[2020-08-02] MEDS: lisinopriL 5 MG TABLET PO (08:33)
[2020-08-02] MEDS: Finasteride 5 MG TABLET 2.5 MG PO (08:33)
[2020-08-02] MEDS: Sertraline HCL 100 MG TABLET PO (08:33)
[2020-08-02 18:00] VITALS: BP 137/75; PULSE 85
[2020-08-02 23:13] VITALS: BP 137/74; PULSE 85
[2020-08-02] MEDS: cloNIDine HCL 0.1 MG TABLET 0.3 MG PO (23:13)
[2020-08-02] MEDS: traZODone HCL 100 MG TABLET PO (23:16)
[2020-08-03] VITALS (12 sets, daily range): BP systolic 102–140; BP diastolic 55–88; PULSE 79–96; RESP 16–18; TEMP 36.1–36.9; O2SAT 93–97; BMI 30.9
--- NOTE | 2020-08-03 06:22 | HO.ECTPROC ---
ECT Procedure Note Diagnosis/Treatment Diagnosis: Bipolar disorder Previous ECT Date: 08/01/20 Current Treatment Number: 3 Treatment: Series Interval Clinical Notes: Improving mood ECT Settings Device: THYMATRON DGx Electrode Placement: Right Unilateral Program/Pulse Width: 0.25 Energy Percent: 70 Seizure Duration By EEG (in seconds): 46 By Motor Observation (in seconds): 39 Medications Administration General Anesthetic: Etomidate (16) Muscle Relaxant: Succinylcholine (100) Ancillary Medications Analgesics: Torodol - Pre ECT (30) Anti-emetics: Zofran - Pre ECT (4) Miscillaneous Medications: Propofol (30) and Flumazenil (0.5) Airway Management Airway Management: Bag Mask Ventilation Treatment Recommendations Electrode Placement: Right Unilateral Program/Pulse Width: 0.25 Energy Percent: 60 Pt Tolerated Procedure w/o Issue: Yes
--- NOTE | 2020-08-03 06:22 | MHC.SHP ---
Pre-Procedural Eval Section A The patient is an INPATIENT: Yes Changes since office visit: No Cold of Flu in the past 2 weeks, No New Medical Problems, No Changes in Medication and No Patient answered all questions The History & Physical has been completed within 30 days and I have reviewed it.: Yes Section B Chief Complaint: Depression Allergies: Allergies Allergy/AdvReac Type Severity Reaction Status Date / Time No Known Allergies Allergy Verified 07/19/20 14:59 Plan Patient has been examined and remains a candidate for the planned procedure
--- NOTE | 2020-08-03 07:16 | HO.ANESPROP2 ---
[facility] Past Medical History Medical History Arthritis Bipolar 2 disorder, major depressive episode Depression PCOS (polycystic ovarian syndrome) PTSD (post-traumatic stress disorder) Scoliosis Varicose vein of leg Functional capacity: independent ambulation Surgical History Surgical History Hx of appendectomy Social History Social History Household Members: Friend(s) Housing: Apartment Smoking Status: Current every day smoker Tobacco Type: Cigarette Packs Per Day: 0.5 Cigarettes Per Day: 10.0 Years Smoked: 20 Second Hand Smoke Exposure: No Substance Use Type: Marijuana service: No Sexual orientation: Lesbian/Dominguez/Homosexual Meds Allergies Allergy/AdvReac Type Severity Reaction Status Date / Time No Known Allergies Allergy Verified 07/19/20 14:59 Home Medications Medication Instructions Recorded Confirmed Type clonidine HCl 0.3 mg PO BEDTIME 07/19/20 07/19/20 History dextroamphetamine-amphetamine 5 mg PO DAILY 07/19/20 07/19/20 History [Adderall] finasteride 2.5 mg PO DAILY 07/19/20 07/19/20 History lamotrigine 200 mg PO DAILY 07/19/20 07/19/20 History lorazepam 1 mg PO DAILY 07/19/20 07/19/20 History sertraline 25 mg PO DAILY 07/19/20 07/19/20 History Exam Exam Date and Time: August 03, 2020 0716 Height,Weight and Vital Signs: Height 5 ft 7 in Weight 89.6 kg Last Vital Signs Temp 96.9 F 08/03/20 06:41 Pulse 79 08/03/20 06:41 Resp 16 08/03/20 06:41 BP 102/55 L 08/03/20 06:41 Pulse Ox 96 08/03/20 06:41 Pertinent Lab Results Pertinent Lab Results: Laboratory Tests 07/19/20 07/19/20 07/19/20 14:35 14:35 15:31 WBC 11.9 H RBC 4.94 Hgb 15.4 Hct 44.6 MCV 90.3 MCH 31.2 MCHC 34.5 RDW 11.9 Plt Count 370 MPV 9.7 Immature Gran % (Auto) 0.5 H Neut % (Auto) 76.9 H Lymph % (Auto) 15.6 L [place] % (Auto) 6.0 Eos % (Auto) 0.6 Baso % (Auto) 0.4 Lymph # (Auto) 1.9 [place] # (Auto) 0.7 Eos # (Auto) 0.1 Baso # (Auto) 0.1 Abs Immat Gran (auto) 0.06 H Absolute Neuts (auto) 9.2 H Absolute Nucleated RBC 0.000 Nucleated RBC % (auto) 0.0 Sodium Potassium Chloride Carbon Dioxide Anion Gap Random Glucose Urine Test NEGATIVE Salicylates Urine Opiates Screen Not Detected Acetaminophen Ur Barbiturates Screen Not Detected Ur Phencyclidine Scrn Not Detected Ur Amphetamines Screen Not Detected U Benzodiazepines Scrn Not Detected Urine Cocaine Screen Not Detected U Marijuana (THC) Screen POSITIVE H Ethyl Alcohol Coronavirus (PCR) 07/19/20 07/19/20 07/20/20 15:31 15:31 14:35 WBC RBC Hgb Hct MCV MCH MCHC RDW Plt Count MPV Immature Gran % (Auto) Neut % (Auto) Lymph % (Auto) [place] % (Auto) Eos % (Auto) Baso % (Auto) Lymph # (Auto) [place] # (Auto) Eos # (Auto) Baso # (Auto) Abs Immat Gran (auto) Absolute Neuts (auto) Absolute Nucleated RBC Nucleated RBC % (auto) Sodium Potassium Chloride Carbon Dioxide Anion Gap Random Glucose Urine Test Salicylates < 5.0 L Urine Opiates Screen Acetaminophen < 1 Ur Barbiturates Screen Ur Phencyclidine Scrn Ur Amphetamines Screen U Benzodiazepines Scrn Urine Cocaine Screen U Marijuana (THC) Screen Ethyl Alcohol < 10 Coronavirus (PCR) NEGATIVE 07/28/20 07/28/20 09:52 09:52 WBC 10.2 RBC 4.61 Hgb 14.1 Hct 42.1 MCV 91.3 MCH 30.6 MCHC 33.5 RDW 12.1 Plt Count 345 MPV 9.5 Immature Gran % (Auto) 0.6 H Neut % (Auto) 64.9 Lymph % (Auto) 23.6 [place] % (Auto) 8.3 Eos % (Auto) 2.1 Baso % (Auto) 0.5 Lymph # (Auto) 2.4 [place] # (Auto) 0.9 Eos # (Auto) 0.2 Baso # (Auto) 0.1 Abs Immat Gran (auto) 0.06 H Absolute Neuts (auto) 6.6 Absolute Nucleated RBC 0.000 Nucleated RBC % (auto) 0.0 Sodium 138 Potassium 4.5 Chloride 103 Carbon Dioxide 24 Anion Gap 16 Random Glucose 98 Urine Test Salicylates Urine Opiates Screen Acetaminophen Ur Barbiturates Screen Ur Phencyclidine Scrn Ur Amphetamines Screen U Benzodiazepines Scrn Urine Cocaine Screen U Marijuana (THC) Screen Ethyl Alcohol Coronavirus (PCR) Airway Mallampati Class: III TM Dist: >3cm Neck ROM: Full Heart: RRR Assessment and Plan Assessment Anesthesia Assessment: Anesthesia Plan Discussed Final Anesthetic Review NPO: Yes ASA Class: II Anesthetic Plan Anesthetic Plan: GA Disposition: Standard PACU
[2020-08-03] MEDS: LORazepam 1 MG TABLET PO ×2 (08:47→13:52)
[2020-08-03] MEDS: Finasteride 5 MG TABLET 2.5 MG PO (08:48)
[2020-08-03] MEDS: Sertraline HCL 100 MG TABLET PO (08:48)
[2020-08-03] MEDS: cloNIDine HCL 0.1 MG TABLET 0.3 MG PO (22:37)
[2020-08-03] MEDS: traZODone HCL 100 MG TABLET PO (22:37)
[2020-08-04 06:10] VITALS: BP 108/56; PULSE 83; RESP 16; TEMP 36.2; O2SAT 99
--- NOTE | 2020-08-04 07:28 | PM.PSYDC ---
DS: Providers Provider Date of admission: 07/20/20 21:52 Primary care physician: Leatha Gold PA-C DS: Diagnosis Discharge Diagnosis (1) Bipolar 2 disorder, major depressive episode: Status: Acute (2) PTSD (post-traumatic stress disorder): Status: Acute Discharge Plan Discharge Patient Disposition: Home, Self-Care Referrals: Meseret Garcia, psychiatrist [Other] - 08/05/20 11:30 am Jessica Cade, therapist [Other] - 08/05/20 3:15 pm (Telehealth) [facility] Community Support Program [Other] (A ref has been made for you- awaiting response from [facility]- if you do not hear from a clinician please call to follow up. ) Leatha Gold PA-C [Primary Care Provider] - 08/09/20 11:00 am ([facility]) Discharge Medications: New quetiapine 25 mg Tablet 25 mg PO RQ6H PRN (Reason: Anxiety/Restlessness) 30 Days Qty: 60 RF: 0 albuterol sulfate 2.5 mg /3 mL (0.083 %) Solution For Nebulization 2.5 mg inhalation ONCE PRN (Reason: Wheezing) 30 Days Qty: 2 RF: 0 sertraline 100 mg Tablet 100 mg PO DAILY 30 Days Qty: 30 RF: 0 trazodone 100 mg Tablet 100 mg PO BEDTIME MRX1 PRN (Reason: insomnia) 30 Days Qty: 45 RF: 0 lorazepam 1 mg Tablet 1 mg PO BID@0830,1330 30 Days Qty: 60 RF: 0 lisinopril 2.5 mg Tablet 2.5 mg PO DAILY 30 Days Qty: 30 RF: 0 finasteride [Proscar] 5 mg Tablet 2.5 mg PO DAILY 30 Days Qty: 15 RF: 0 lamotrigine [Lamictal] 25 mg tablet 25 mg PO DIRECTED 30 Days Qty: 30 RF: 0 Continued clonidine HCl 0.3 mg Tablet 0.3 mg PO BEDTIME 30 Days Qty: 30 RF: 0 dextroamphetamine-amphetamine [Adderall] 5 mg Tablet 5 mg PO DAILY 30 Days Qty: 30 RF: 0 Discontinued lamotrigine 200 mg Tablet 200 mg PO DAILY RF: 0 sertraline 25 mg Tablet 25 mg PO DAILY RF: 0 lorazepam 1 mg Tablet 1 mg PO DAILY RF: 0 finasteride 5 mg Tablet 2.5 mg PO DAILY RF: 0 Discharge Orders: Discharge Order (Routine); Ordered 08/04/20 Ordered By: Jamel Parker Diet: advance to your usual diet Activity on Discharge: No driving Discharge Date/Time: 08/04/20 13:10 Activity Restrictions/Additional Instructions: No driving till 08/19/20 due to ECT related restrictions. Hold Lamictal night before ECT Visit Report Forms: Patient Portal Discharge page Care Plan Goals: Ct ECT Ct meds See therapist Health Concerns: Depressed mood Mood lability PTSD Plan of Treatment: Ct ECT Ct meds See therapist Mental Status Exam Mental Status Exam Patient Appearance: Well Grooomed Patient Orientation: Person, Place, Time and Situation Level of Consciousness: Awake Patient Behavior: Appropriate Mood Description: Calm Affect Description: Calm Patient Cognition Impaired: No Speech Pattern: Clear Memory Description: Intact Hallucinations: None Thought Process: Intact Thought Content: positive for Intact Depressive Symptoms: Thoughts of /Suicide (Denied/resolved) Judgement: Good Data Data Completed and Pending Completed studies during hospitalization [Text1]: 07/28/20 07/28/20 09:52 09:52 WBC 10.2 RBC 4.61 Hgb 14.1 Hct 42.1 MCV 91.3 MCH 30.6 MCHC 33.5 RDW 12.1 Plt Count 345 MPV 9.5 Immature Gran % (Auto) 0.6 H Neut % (Auto) 64.9 Lymph % (Auto) 23.6 [place] % (Auto) 8.3 Eos % (Auto) 2.1 Baso % (Auto) 0.5 Lymph # (Auto) 2.4 [place] # (Auto) 0.9 Eos # (Auto) 0.2 Baso # (Auto) 0.1 Abs Immat Gran (auto) 0.06 H Absolute Neuts (auto) 6.6 Absolute Nucleated RBC 0.000 Nucleated RBC % (auto) 0.0 Sodium 138 Potassium 4.5 Chloride 103 Carbon Dioxide 24 Anion Gap 16 Random Glucose 98 DS: Summary Hospital Course Hospital Course: 40 year old woman who was referred to [facility] by the CARE team after she presented to the ER with thoughts of self harm. This is her first hospital stay. She reports that she has been increasingly depressed over the last several months. Precipitants are that she has not been able to hold a job for the last two years due to her depression. More recently she has been struggling with the break up from her partner of 7 years. This is a huge loss for her. Her partner is also transitioning from female to male and their disposition has changed due to the hormones. A further stress has been the pandemic. She had been participating in a dual program through [facility] but his shut down. This has been very hard for her. Kamilah reports that she has been very up and down, having intrusive thoughts of self harm, Past Psychiatric History: Therapist is Jessica Cade through [facility] Prescriber is Meseret Sanabria, also [facility] Hospitalized at age 15 Pt was initially on Dr Ibarra service. She was markedly depressed, easily tearful, overwhelmed with stress. She continued to be suicidal. Medication changes such as Zoloft was increased. Given intensity of symptoms and risk of suicidality, ECT was considered. Extensive education was done. Pt consented to ECT. She was medically Nov 9,11 and 13cleared and received3 ECTs. She responded excellently to ECT with rapid improvement of mood, brighter affect, no tearful. She complained of ECT related CHAUDHARI that responded to analgesics. Due to improvement she decided to complete ECT series as an outpatient. Transportation was arranged by the pt. Lamotrigine was DCd during ECT.. Pt continues to be on Zoloft. Scheduled ECT for , and 13. Status at Discharge Functional status at discharge: independent ambulation Overall status at discharge: patient is progressing back to baseline Time Spent with Patient Time attestation: Total time spent providing and/or coordinating discharge services:
[2020-08-04 08:24] LABS: Cholesterol 201 mg/dL; Glucose Fasting 96 mg/dL (60-99); HDL Cholesterol 59 mg/dL; LDL Cholesterol Calculated 128 mg/dl; Triglycerides 73 mg/dL
[2020-08-04] MEDS: Sertraline HCL 100 MG TABLET PO (08:37)
[2020-08-04] MEDS: Finasteride 5 MG TABLET 2.5 MG PO (08:37)
[2020-08-04 08:38] VITALS: BP 108/56; PULSE 83
[2020-08-04] MEDS: lisinopriL 2.5 MG TABLET PO (08:38)
[2020-08-04] MEDS: LORazepam 1 MG TABLET PO (08:38)
--- NOTE | 2020-08-04 12:53 | HO.POSTANES ---
Post Anesthesia Evaluation Post Anesthesia Evaluation Vital Signs: Vital Signs Temp Pulse Resp BP Pulse Ox 08/04/20 08:38 83 108/56 L 08/04/20 06:10 97.2 F 83 16 108/56 L 99 Anesthesia: General Mental Status: Awake Pain Control: Satisfactory Nausea/Vomiting: None Hydration: Adequate Anesthesia-Related Issues: No Anes. Related Issues
== END 2020-08-04 13:10 | disposition home or self-care (01) | DRG 753 ==
LOC: HO.ED 07-20 22:01 → HO.PM5 07-20 22:19
PROVIDERS: Physician Assistant; Psychiatry & Neurology Psychiatry; Admitting Provider Psychiatry & Neurology Psychiatry; Emergency Provider Emergency Medicine; PCP Physician Assistant Medical; Visit Provider Psychiatry & Neurology Psychiatry
PROC: (CPT 90870; principal; 2020-07-29 07:00)
PROC: GZB4ZZZ Other Electroconvulsive Therapy (ICD-10-PCS; CPT 90870; principal; 2020-08-01 08:00)
DX: F31.81 Bipolar II disorder (principal); R45.851 Suicidal ideations; F43.10 Post-traumatic stress disorder, unspecified; Z20.828 Contact with and (suspected) exposure to other viral communicable diseases; Z91.5 Personal history of self-harm; Z23 Encounter for immunization; Z79.899 Other long term (current) drug therapy
CPT/HCPCS: 36415; 80051; 80061; 80307; 80320; 81025; 82947; 85025; 87635; 90686; 90870; 93005; 99232; 99239; 99285; G0480; J0330; J1885; J2405

== ENCOUNTER 2020-08-10 06:02 | Day surgery (SDC) | payer OTHER, SELFPAY ==
[2020-08-10] VITALS (7 sets, daily range): BP systolic 129–143; BP diastolic 75–94; PULSE 78–94; RESP 12–20; TEMP 36.7–36.8; O2SAT 95–98; BMI 30.8
--- NOTE | 2020-08-10 07:13 | HO.ANESPROP2 ---
HPI - Anesthesia Eval Consult details Narrative: 40 F for ECT PMFSH Past Medical History Medical History Arthritis Bipolar 2 disorder, major depressive episode Depression PCOS (polycystic ovarian syndrome) PTSD (post-traumatic stress disorder) Scoliosis Varicose vein of leg Surgical History Surgical History Hx of appendectomy Social History Social History Household Members: Friend(s) Housing: Apartment Smoking Status: Current every day smoker Tobacco Type: Cigarette Packs Per Day: 0.5 Cigarettes Per Day: 10.0 Years Smoked: 20 Second Hand Smoke Exposure: No Substance Use Type: Marijuana Advance Directives: No service: No Sexual orientation: Lesbian/Dominguez/Homosexual Meds Allergies Allergy/AdvReac Type Severity Reaction Status Date / Time No Known Allergies Allergy Verified 07/19/20 14:59 Exam Exam Date and Time: August 10, 2020 0713 Height,Weight and Vital Signs: Height 5 ft 7 in Weight 89.358 kg Last Vital Signs Temp 98.3 F 08/10/20 06:30 Pulse 82 08/10/20 06:30 Resp 16 08/10/20 06:30 BP 133/83 08/10/20 06:30 Pulse Ox 97 08/10/20 06:30 Airway Mallampati Class: I TM Dist: >3cm Neck ROM: Full Loose/Missing/Broken Teeth: No Assessment and Plan Assessment Anesthesia Assessment: Anesthesia Plan Discussed Final Anesthetic Review NPO: Yes ASA Class: II Final Preanesthetic Review: No Changes in Pt Med Stat, Meds/Allgs Chart Reviewed and Consent Obtained/Reviewed Patient Risk: Low Procedure Risk: Low Anesthetic Plan Anesthetic Plan: GA Disposition: Standard PACU
--- NOTE | 2020-08-10 07:33 | MHC.SHP ---
Pre-Procedural Eval Section A The patient is an INPATIENT: No Changes since office visit: Yes Patient answered all questions; No Cold of Flu in the past 2 weeks, No New Medical Problems and No Changes in Medication The History & Physical has been completed within 30 days and I have reviewed it.: Yes Section B Chief Complaint: severe depression Allergies: Allergies Allergy/AdvReac Type Severity Reaction Status Date / Time No Known Allergies Allergy Verified 07/19/20 14:59 Plan Patient has been examined and remains a candidate for the planned procedure
--- NOTE | 2020-08-10 08:42 | HO.ECTPROC ---
ECT Procedure Note Diagnosis/Treatment Diagnosis: Bipolar disorder Previous ECT Date: 08/08/20 Current Treatment Number: 4 Treatment: Series Interval Clinical Notes: pt depressed neg si has unstable outpt situation denied need for readmnit ECT Settings Device: THYMATRON DGx Electrode Placement: Right Unilateral Program/Pulse Width: 0.25 Energy Percent: 60 Seizure Duration By EEG (in seconds): 52 Medications Administration General Anesthetic: Etomidate (16) Muscle Relaxant: Succinylcholine (100) Ancillary Medications Analgesics: Torodol - Pre ECT (30) Anti-emetics: Zofran - Pre ECT (4) Miscillaneous Medications: Propofol (30) and Flumazenil (0.5) Airway Management Airway Management: Bag Mask Ventilation Treatment Recommendations No Changes Recommended: No change Notes: monitor pt response cont series per dr beaulieu Pt Tolerated Procedure w/o Issue: Yes
== END 2020-08-10 08:50 | disposition home or self-care (01) ==
PROVIDERS: PCP Physician Assistant Medical; Visit Provider Psychiatry & Neurology Psychiatry
PROC: (CPT 90870; principal; 2020-08-10 16:00)
DX: F31.81 Bipolar II disorder (principal); F43.10 Post-traumatic stress disorder, unspecified; F17.210 Nicotine dependence, cigarettes, uncomplicated; F12.90 Cannabis use, unspecified, uncomplicated
CPT/HCPCS: 90870

== ENCOUNTER 2020-08-12 06:09 | Day surgery (SDC) | payer OTHER, SELFPAY ==
--- NOTE | 2020-08-12 06:11 | HO.ECTPROC ---
ECT Procedure Note ECT Settings Device: THYMATRON DGx
--- NOTE | 2020-08-12 06:11 | MHC.SHP ---
Pre-Procedural Eval Section B Chief Complaint: severe depression Allergies: Allergies Allergy/AdvReac Type Severity Reaction Status Date / Time No Known Allergies Allergy Verified 07/19/20 14:59 Plan Patient has been examined and remains a candidate for the planned procedure
--- NOTE | 2020-08-12 06:44 | PC.NURSE ---
Pt arriving to PACU for scheduled ECT. Pt speaking with Dr. Parker at bedside and declining ECT treatment. Pt discharged from PACU.
== END 2020-08-12 23:59 ==
LOC: HO.SSS 06:10
PROVIDERS: PCP Physician Assistant Medical; Visit Provider Psychiatry & Neurology Psychiatry
DX: F32.9 Major depressive disorder, single episode, unspecified (principal); Z53.9 Procedure and treatment not carried out, unspecified reason